=== PATIENT | female | born 1965 | race Caucasian/White ===

== ENCOUNTER 2019-06-30 09:03 | Outpatient (CLI) | payer OTHER, SELFPAY ==
[2019-06-30 09:36] LABS: Hematocrit 38.3 % (37.0-47.0); Hemoglobin 12.5 g/dL (12.0-15.0); Mean Corpuscular HGB Conc 32.6 g/dl (32-36); Mean Corpuscular Hemoglobin 28.7 pg (26-34); Mean Platelet Volume 10.8 fl (7.4-10.4); Platelet Count Result 405 k/mm3 (150-375); Red Blood Count 4.35 M/mm3 (4.2-5.4); Red Cell Distribution Width 13.2 % (11.5-14.5); White Blood Count 7.4 K/mm3 (4.5-10.0)
[2019-06-30 09:51] LABS: Alanine Aminotransferase 43 U/L (4-35); Albumin Level 4.7 g/dL (3.5-5.1); Alkaline Phosphatase 61 U/L (38-126); Aspartate Amino Transferase 38 U/L (14-36); Bilirubin,Total 0.3 mg/dL (0.2-1.3); Blood Urea Nitrogen 17 mg/dL (7-17); Calcium 9.9 mg/dL (8.4-10.2); Carbon Dioxide 27 mmol/L (22-30); Chloride 105 mmol/L (98-107); Cholesterol 165 mg/dL (0-200); Estimated Glomerular Filt Rate > 60; Glucose 99 mg/dL (65-105); HDL Direct 61 mg/dL; Potassium 4.3 mmol/L (3.4-5.0); Sodium 138 mmol/L (137-145); Triglycerides 148 mg/dL (<150)
[2019-06-30 10:02] LABS: Parathyroid Intact 9.2 pg/mL (7.5-53.5)
[2019-06-30 10:08] LABS: LDL Cholesterol Direct 71 mg/dL
[2019-06-30 10:21] LABS: Thyroid Stimulating Hormone 0.351 uIU/mL (0.465-4.680)
[2019-06-30 10:32] LABS: Vitamin D 25 Hydroxy 35.4 ng/mL
== END 2019-06-30 09:04 | disposition home or self-care (01) ==
LOC: ANHLAB 09:05
PROVIDERS: PCP Internal Medicine; Visit Provider Internal Medicine
DX: Z00.00 Encounter for general adult medical examination without abnormal findings (principal); E55.9 Vitamin D deficiency, unspecified; E78.00 Pure hypercholesterolemia, unspecified
CPT/HCPCS: 36415; 80053; 80061; 82306; 83970; 84443; 85027

== ENCOUNTER 2019-11-26 13:30 | Outpatient (CLI) | payer OTHER, SELFPAY ==
--- NOTE | ~2019-11-26 | XR_ITS ---
EXAMINATION: XR knee RT min 4V DATE: 11/26/2019 14:24 INDICATION: Right knee pain TECHNIQUE: Five views of the right knee were obtained. COMPARISON: None. FINDINGS: Alignment is normal. No fracture or osteochondral lesion. There is mild tricompartmental os teoarthritis characterized by tiny marginal osteophytes. No joint effusion/synovitis. The anterior m arker on the lateral view of the knee projects over the anterior tibial tuberosity. IMPRESSION: 1. No acute osseous abnormality. Reviewed, dictated and finalized at location A.
== END 2019-11-26 13:31 | disposition home or self-care (01) ==
PROVIDERS: PCP Internal Medicine; Visit Provider Orthopaedic Surgery
DX: M25.561 Pain in right knee (principal)
CPT/HCPCS: 73564

== ENCOUNTER 2019-12-22 07:12 | Outpatient (CLI) | payer OTHER, SELFPAY ==
[2019-12-22 07:44] LABS: Basophils Absolute Auto 0.1 K/mm3 (0.0-0.1); Basophils Percent Auto 0.9 % (0.2-1.2); Eosinophils Absolute Auto 0.3 K/mm3 (0-0.3); Eosinophils Percent Auto 4.2 % (0-4.4); Hematocrit 37.3 % (37.0-47.0); Hemoglobin 12.3 g/dL (12.0-15.0); Immature Granulocyte Absolute 0.03 K/mm3 (0.00-0.031); Immature Granulocyte Percent A 0.4 % (0-0.5); Lymphocytes Absolute Auto 2.82 K/mm3 (0.9-3.2); Lymphocytes Percent Auto 35.8 % (18.3-44.2); Mean Corpuscular Hemoglobin 29.3 pg (26-34); Mean Corpuscular Volume 88.8 fl (80-100); Mean Platelet Volume 10.7 fl (7.4-10.4); Monocytes Absolute Auto 0.6 K/mm3 (0.1-0.6); Neutrophils Percent Auto 50.7 % (45.5-73.1); Platelet Count Result 365 k/mm3 (150-375); Red Cell Distribution Width 13.2 % (11.5-14.5); White Blood Count 7.9 K/mm3 (4.5-10.0)
[2019-12-22 07:54] LABS: Alanine Aminotransferase 50 U/L (4-35); Albumin Level 4.4 g/dL (3.5-5.1); Alkaline Phosphatase 56 U/L (38-126); Anion Gap 10 mmol/L (8-16); Aspartate Amino Transferase 40 U/L (14-36); Bilirubin,Total 0.4 mg/dL (0.2-1.3); Blood Urea Nitrogen 20 mg/dL (7-17); Calcium 9.8 mg/dL (8.4-10.2); Carbon Dioxide 24 mmol/L (22-30); Chloride 106 mmol/L (98-107); Cholesterol 174 mg/dL (0-200); Estimated Glomerular Filt Rate > 60; Glucose 98 mg/dL (65-105); HDL Direct 62 mg/dL; Potassium 4.4 mmol/L (3.4-5.0); Sodium 140 mmol/L (137-145); Triglycerides 191 mg/dL (<150)
[2019-12-22 08:05] LABS: LDL Cholesterol Direct 80 mg/dL
[2019-12-22 09:01] LABS: Folic Acid > 20.0 ng/mL (2.76->20)
[2019-12-22 09:57] LABS: Free T4 Free Thyroxine 1.01 ng/mL (0.78-2.19); Vitamin D 25 Hydroxy 35.7 ng/mL
[2019-12-22 10:28] LABS: Hepatitis C Virus Antibody Negative (Negative)
== END 2019-12-22 07:13 | disposition home or self-care (01) ==
LOC: ANHLAB 07:14
PROVIDERS: PCP Internal Medicine; Visit Provider Internal Medicine
DX: E55.9 Vitamin D deficiency, unspecified (principal); E78.00 Pure hypercholesterolemia, unspecified; R53.83 Other fatigue; R79.89 Other specified abnormal findings of blood chemistry
CPT/HCPCS: 36415; 80053; 80061; 82306; 82607; 82746; 84439; 84443; 85025; 86803

== ENCOUNTER 2020-07-26 07:35 | Outpatient (CLI) | payer OTHER, SELFPAY ==
[2020-07-26 08:24] LABS: Basophils Absolute Auto 0.1 K/mm3 (0.0-0.1); Eosinophils Absolute Auto 0.9 K/mm3 (0-0.3); Eosinophils Percent Auto 12.4 % (0-4.4); Hematocrit 39.1 % (37.0-47.0); Hemoglobin 12.9 g/dL (12.0-15.0); Immature Granulocyte Absolute 0.02 K/mm3 (0.00-0.031); Immature Granulocyte Percent A 0.3 % (0-0.5); Lymphocytes Percent Auto 38.6 % (18.3-44.2); Mean Corpuscular Hemoglobin 29.4 pg (26-34); Mean Corpuscular Volume 89.1 fl (80-100); Mean Platelet Volume 11.3 fl (7.4-10.4); Monocytes Absolute Auto 0.6 K/mm3 (0.1-0.6); Monocytes Percent Auto 8.1 % (2.6-8.5); Neutrophils Absolute Auto 2.9 K/mm3 (1.3-6.7); Neutrophils Percent Auto 39.6 % (45.5-73.1); Platelet Count Result 370 k/mm3 (150-375); Red Blood Count 4.39 M/mm3 (4.2-5.4); Red Cell Distribution Width 13.2 % (11.5-14.5); White Blood Count 7.3 K/mm3 (4.5-10.0)
[2020-07-26 08:36] LABS: Alanine Aminotransferase 36 U/L (4-35); Albumin Level 4.7 g/dL (3.5-5.1); Alkaline Phosphatase 45 U/L (38-126); Anion Gap 13 mmol/L (8-16); Aspartate Amino Transferase 37 U/L (14-36); Bilirubin,Total 0.3 mg/dL (0.2-1.3); Blood Urea Nitrogen 18 mg/dL (7-17); Calcium 10.2 mg/dL (8.4-10.2); Carbon Dioxide 21 mmol/L (22-30); Chloride 109 mmol/L (98-107); Cholesterol 165 mg/dL (0-200); Estimated Glomerular Filt Rate > 60; Glucose 99 mg/dL (65-105); HDL Direct 73 mg/dL; Potassium 4.2 mmol/L (3.4-5.0); Sodium 143 mmol/L (137-145); Triglycerides 124 mg/dL (<150)
[2020-07-26 08:47] LABS: LDL Cholesterol Direct 54 mg/dL
[2020-07-26 09:31] LABS: Vitamin D 25 Hydroxy 48.6 ng/mL
[2020-07-26 10:12] LABS: Folic Acid > 20.0 ng/mL (2.76->20)
== END 2020-07-26 07:36 | disposition home or self-care (01) ==
PROVIDERS: PCP Internal Medicine; Visit Provider Internal Medicine
DX: E78.00 Pure hypercholesterolemia, unspecified (principal); R53.83 Other fatigue; E55.9 Vitamin D deficiency, unspecified
CPT/HCPCS: 36415; 80053; 80061; 82306; 82607; 82746; 84443; 85025

== ENCOUNTER 2020-09-08 01:44 | Day surgery (SDC) | payer OTHER, SELFPAY ==
[2020-08-26 10:52] VITALS: BMI 35.5
[2020-09-08 08:19] VITALS: BP 118/79; PULSE 85; RESP 18; TEMP 36.7; O2SAT 99
[2020-09-08] MEDS: LACTATED RINGERS 1,000 ML 150 ML IV CONT (08:32)
--- NOTE | 2020-09-08 08:35 | PM.HPGS ---
History of Present Illness History of Present Illness Consent: Risks, benefits, and alternatives have been discussed and questions answered. Patient agrees to proceed with procedure. Chief complaint: neoplasm screening, hx of colon polyps Narrative: Naa Montes is a 54 year old female here for colon cancer screening. She has a history of polyps. Review of Systems Review of Systems: All systems reviewed & are unremarkable except as noted in HPI and below PMFSH Past Medical History Medical History Abnormal TSH Asthma Chronic GERD Elevated LFTs Essential (primary) hypertension Hypercholesterolemia Vitamin D deficiency, unspecified Surgical History Surgical History History of nasal surgery (~2000) Family History Family History Father Patient's father is Social History Social History Smoking packs per day: 1 Smoking cigarettes per day: 20.0 Years smoked: 10 Smoking pack-years: 10.00 Smoking status: Former smoker Tobacco type: cigarettes Second hand tobacco smoke exposure: No Smoking end date: 02/21/91 Alcohol intake: current Alcohol use details: Very rarely Substance use: never Living arrangements: with family Spiritual care concerns: No Meds Home Medications and Allergies Home Medications Medication Instructions Recorded Confirmed Type fluticasone propionate 50 1 spray NASAL DAILY 12/29/18 08/26/20 History mcg/actuation nasal spray,suspension fenofibrate nanocrystallized 145 145 mg PO DAILY #90 tablet 04/29/20 08/26/20 Rx mg tablet simvastatin 40 mg tablet 40 mg PO DAILY #90 tablet 04/29/20 08/26/20 Rx fluticasone 100 mcg-salmeterol 50 1 ea INHALATION BID #180 each 08/05/20 08/26/20 Rx mcg/dose blistr powdr for inhalation pantoprazole 40 mg tablet,delayed 40 mg PO BID #180 tablet 08/05/20 08/26/20 Rx release losartan 50 mg tablet 50 mg PO DAILY #90 tablet 08/12/20 08/26/20 Rx albuterol sulfate [ProAir HFA] 1 inhalation INHALATION Q4H PRN 08/26/20 08/26/20 History calcium citrate-vitamin D3 1 tablet PO DAILY 08/26/20 08/26/20 History [Calcium Citrate + D] multivit with min-folic acid 1 tablet PO DAILY 08/26/20 08/26/20 History [Adult One Daily Multivitamin] Allergies Allergy/AdvReac Type Severity Reaction Status Date / Time No Known Allergies Allergy Verified 09/08/20 08:18 Vital Signs Vital Signs - 24 hr 09/08/20 08:19 Temperature 36.7 C Pulse Rate 85 Respiratory Rate 18 Blood Pressure 118/79 Pulse Oximetry 99 Exam Resp: Auscultation: clear to auscultation bilaterally Cardio: Rate: regular rate Rhythm: regular rhythm GI: GI Palp: Yes Soft to palpation and No Tenderness to palpation present (GI) Assessment and Plan Assessment and plan (1) Hx of colonic polyp: Code(s): Z86.010 - Personal history of colonic polyps Status: Acute Assessment and Plan: Colonoscopy with possible biopsy or polypectomy or cautery or injection of substances.
--- NOTE | 2020-09-08 09:05 | WPDANESEPPF ---
Anes - Initial Pre Proc Eval Procedure: Operation Date: 09/08/20 09:00 Proposed Procedures p Screening Colonoscopy - Manuel Steen MD Date/Time: 09/08/20 09:05 Surgeon: Manuel Steen MD Pre Op Diagnosis: neoplasm screening, hx of colon polyps Patient Data Age: 54 Gender: F Height: 1.6 m Weight: 91.7 kg Last Vital Signs Temp 98.1 F 09/08/20 08:19 Pulse 85 09/08/20 08:19 Resp 18 09/08/20 08:19 BP 118/79 09/08/20 08:19 Pulse Ox 99 09/08/20 08:19 Allergies Allergy/AdvReac Type Severity Reaction Status Date / Time No Known Allergies Allergy Verified 09/08/20 08:18 Home Medications Medication Instructions Recorded Confirmed Type fluticasone propionate 50 1 spray NASAL DAILY 12/29/18 08/26/20 History mcg/actuation nasal spray,suspension fenofibrate nanocrystallized 145 145 mg PO DAILY #90 tablet 04/29/20 08/26/20 Rx mg tablet simvastatin 40 mg tablet 40 mg PO DAILY #90 tablet 04/29/20 08/26/20 Rx fluticasone 100 mcg-salmeterol 50 1 ea INHALATION BID #180 each 08/05/20 08/26/20 Rx mcg/dose blistr powdr for inhalation pantoprazole 40 mg tablet,delayed 40 mg PO BID #180 tablet 08/05/20 08/26/20 Rx release losartan 50 mg tablet 50 mg PO DAILY #90 tablet 08/12/20 08/26/20 Rx albuterol sulfate [ProAir HFA] 1 inhalation INHALATION Q4H PRN 08/26/20 08/26/20 History calcium citrate-vitamin D3 1 tablet PO DAILY 08/26/20 08/26/20 History [Calcium Citrate + D] multivit with min-folic acid 1 tablet PO DAILY 08/26/20 08/26/20 History [Adult One Daily Multivitamin] Patient hx anesthesia problems: none Family hx anesthesia problems: none PMFSH Past Medical History Medical History Abnormal TSH Asthma Chronic GERD Elevated LFTs Essential (primary) hypertension Hypercholesterolemia Vitamin D deficiency, unspecified Surgical History Surgical History History of nasal surgery (~2000) Family History Family History Father Patient's father is Social History Social History Smoking packs per day: 1 Smoking cigarettes per day: 20.0 Years smoked: 10 Smoking pack-years: 10.00 Smoking status: Former smoker Tobacco type: cigarettes Second hand tobacco smoke exposure: No Smoking end date: 02/21/91 Alcohol intake: current Alcohol use details: Very rarely Substance use: never Living arrangements: with family Spiritual care concerns: No Anes - Eval Final PreProcedure Day of Procedure 09/08/20 09:05 Patient weight: obese Heart: regular rate and rhythm Lungs: clear to auscultation Airway: Mallampati scale class II Neurological: alert and oriented Last oral intake: >/= 8 hours ASA classification: III Emergent: no Anesthetic plan: proceed Anesthesia type and monitoring: general GIVS and standard monitoring Informed Consent: The patient's anesthetic plan and its attendant risks and benefits were discussed with the patient/family/POA. Questions were solicited and answers provided to the satisfaction of the patient/family/POA.
[2020-09-08 09:37] VITALS: BP 88/44; PULSE 76; RESP 21; O2SAT 99
[2020-09-08 09:47] VITALS: BP 128/85; PULSE 76; RESP 19; O2SAT 99
[2020-09-08 09:57] VITALS: BP 120/84; PULSE 78; RESP 18; O2SAT 100
== END 2020-09-08 10:05 | disposition home or self-care (01) ==
PROVIDERS: PCP Internal Medicine; Visit Provider Internal Medicine Gastroenterology
PROC: 0DJD8ZZ Inspection of Lower Intestinal Tract, Via Natural or Artificial Opening Endoscopic (ICD-10-PCS; CPT 45378; principal; 2020-09-08 09:00)
DX: Z12.11 Encounter for screening for malignant neoplasm of colon (principal); Z86.010 Personal history of colon polyps; K57.30 Diverticulosis of large intestine without perforation or abscess without bleeding; K21.9 Gastro-esophageal reflux disease without esophagitis; I10 Essential (primary) hypertension; J45.909 Unspecified asthma, uncomplicated; E78.00 Pure hypercholesterolemia, unspecified; E55.9 Vitamin D deficiency, unspecified; Z87.891 Personal history of nicotine dependence
CPT/HCPCS: 45378; J2704; J7120

== ENCOUNTER 2020-09-29 17:15 | Outpatient (CLI) | payer OTHER, SELFPAY ==
[2020-09-29 17:34] LABS: Add Urine Microscopic? YES; Appearance Urine Clear (Clear); Bilirubin Urine Negative (Negative); Blood Urine Negative (Negative); Color Urine Yellow (Yellow); Glucose Urine UA Negative (Negative); Ketones Urine Negative (Negative); Leukocyte Esterase Ur Negative LEU/UL (Negative); Nitrate Urine Negative (Negative); Protein Urine Negative (Negative); RBC Urine 0-2 /hpf (0-2); Specific Grav Ur 1.019 (1.001-1.035); Urobilinogen Urine Negative mg/dL (<2.0); WBC Urine 0-3 /hpf
== END 2020-09-29 17:16 | disposition home or self-care (01) ==
LOC: ANHLAB 17:17
PROVIDERS: PCP Internal Medicine; Visit Provider Internal Medicine
DX: R30.0 Dysuria (principal)
CPT/HCPCS: 81001

== ENCOUNTER 2021-04-23 09:36 | Outpatient (CLI) | payer OTHER, SELFPAY ==
--- NOTE | ~2021-04-23 | XR_ITS ---
EXAMINATION: XR toe 5th RT min 2V EXAM DATE: 04/23/2021 09:50 INDICATION: M79.676 - Pain in unspecified toe(s) Stubbed To On Tv Stand TECHNIQUE: Right 5th finger frontal, lateral and oblique projections obtained and reviewed. Comparis on is made to prior examination from 06/16/2014. FINDINGS: There is acute closed posttraumatic fracture through the shaft of the right 5th proximal p halanx with a few millimeters of displacement, in near-anatomic alignment. There is overlying soft ti ssue swelling. Previously seen 5th metatarsal fracture has healed. IMPRESSION: Acute right 5th proximal phalangeal shaft fracture. Reviewed, dictated and finalized at location B. [employer]
== END 2021-04-23 09:37 | disposition home or self-care (01) ==
LOC: ANHIMG 09:41
PROVIDERS: PCP Internal Medicine; Visit Provider Physician Assistant
DX: S92.511A Displaced fracture of proximal phalanx of right lesser toe(s), initial encounter for closed fracture (principal)
CPT/HCPCS: 73660

== ENCOUNTER 2021-05-18 14:00 | Outpatient (CLI) | payer OTHER, SELFPAY ==
--- NOTE | ~2021-05-18 | XR_ITS ---
XR foot RT min 3V DATE: 05/18/2021 14:18 INDICATION: fracture TECHNIQUE: 4 views COMPARISON: 04/23/2021 5th toe FINDINGS: There is moderately prominent osteoarthritis at the first metatarsophalangeal joint. There is a fracture of the shaft of the proximal phalanx of the fifth digit, with approximately one c ortical width lateral and posterior displacement. The fracture line is less lucent since 04/23/2021. There is prominent plantar calcaneal enthesopathy. IMPRESSION: Healing fracture of proximal phalanx of fifth toe Osteoarthritis at first metatarsophalangeal joint Plantar calcaneal enthesopathy Reviewed, dictated and finalized at location A.
== END 2021-05-18 14:01 | disposition home or self-care (01) ==
PROVIDERS: PCP Internal Medicine; Visit Provider Nurse Practitioner Family
DX: S92.502A Displaced unspecified fracture of left lesser toe(s), initial encounter for closed fracture (principal); M19.071 Primary osteoarthritis, right ankle and foot; M77.31 Calcaneal spur, right foot
CPT/HCPCS: 73630

== ENCOUNTER 2021-08-20 07:04 | Outpatient (CLI) | payer OTHER, SELFPAY ==
[2021-08-20 07:33] LABS: Basophils Absolute Auto 0.1 K/mm3 (0.0-0.1); Eosinophils Absolute Auto 0.4 K/mm3 (0-0.3); Eosinophils Percent Auto 4.2 % (0-4.4); Hematocrit 39.5 % (37.0-47.0); Hemoglobin 12.7 g/dL (12.0-15.0); Immature Granulocyte Absolute 0.02 K/mm3 (0.00-0.031); Immature Granulocyte Percent A 0.2 % (0-0.5); Lymphocytes Absolute Auto 3.08 K/mm3 (0.9-3.2); Lymphocytes Percent Auto 37.4 % (18.3-44.2); Mean Corpuscular HGB Conc 32.2 g/dl (32-36); Mean Corpuscular Volume 87.2 fl (80-100); Mean Platelet Volume 10.8 fl (7.4-10.4); Monocytes Absolute Auto 0.7 K/mm3 (0.1-0.6); Neutrophils Percent Auto 48.2 % (45.5-73.1); Platelet Count Result 352 k/mm3 (150-375); Red Blood Count 4.53 M/mm3 (4.2-5.4); Red Cell Distribution Width 14.4 % (11.5-14.5); White Blood Count 8.2 K/mm3 (4.5-10.0)
[2021-08-20 07:50] LABS: Alanine Aminotransferase 38 U/L (6-35); Albumin Level 4.5 g/dL (3.5-5.1); Alkaline Phosphatase 56 U/L (38-126); Anion Gap 7 mmol/L (8-16); Aspartate Amino Transferase 31 U/L (14-36); Bilirubin,Total 0.2 mg/dL (0.2-1.3); Blood Urea Nitrogen 18 mg/dL (7-17); Calcium 9.6 mg/dL (8.4-10.2); Carbon Dioxide 25 mmol/L (22-30); Chloride 108 mmol/L (98-107); Cholesterol 172 mg/dL (0-200); Estimated Glomerular Filt Rate > 60; Glucose 100 mg/dL (65-110); HDL Direct 66 mg/dL; Potassium 5.1 mmol/L (3.4-5.0); Sodium 140 mmol/L (137-145); Triglycerides 240 mg/dL (<150)
[2021-08-20 08:02] LABS: LDL Cholesterol Direct 62 mg/dL
[2021-08-20 08:56] LABS: Folic Acid 15.2 ng/mL (2.76->20)
== END 2021-08-20 07:05 | disposition home or self-care (01) ==
LOC: ANHLAB 07:09
PROVIDERS: PCP Internal Medicine; Visit Provider Internal Medicine
DX: E55.9 Vitamin D deficiency, unspecified (principal); E78.00 Pure hypercholesterolemia, unspecified; R53.83 Other fatigue
CPT/HCPCS: 36415; 80053; 80061; 82306; 82607; 82746; 84443; 85025

== ENCOUNTER 2022-02-18 16:09 | Emergency (ER) | payer OTHER, SELFPAY ==
[2022-02-18 16:45] VITALS: BP 139/80; PULSE 100; RESP 16; TEMP 36.1; O2SAT 99
--- NOTE | 2022-02-19 20:17 | ED.GENADULT ---
HPI - General Adult General Chief complaint: Upper Respiratory Infection Stated complaint: cough History of Present Illness HPI narrative: 56 y/o female. PMHx Asthma, GERD, HTN, Dyslipidemia. Presents to [facility] clinic today with acute complaints of nasal congestion and productive cough ongoing for > 2 weeks. No fever. No chest pain, palpitations, wheezing. Intermittent dyspnea, no hemoptysis. Subtherapeutic reliefs w/home & OTC remedies. Related Data Allergies Allergy/AdvReac Type Severity Reaction Status Date / Time No Known Allergies Allergy Verified 02/18/22 17:22 Review of Systems Review of Systems: CONSTITUTIONAL: Denies fever, chills, sweats. EYES: Denies visual changes, redness, discharge. ENT: Positive rhinorrhea, congestion. No sore throat, otalgia. CARDIOVASCULAR: Denies chest pain, palpitations, edema. RESPIRATORY: Denies dyspnea, wheezing. Positive cough GASTROINTESTINAL: Denies abdominal pain, nausea, vomiting, diarrhea. All other systems have been reviewed: Unless noted remaining ROS Negative. [facility] Past Medical History Medical History Abnormal TSH Asthma Chronic GERD Elevated LFTs Essential (primary) hypertension Fracture of fifth toe, left, closed Fracture of fifth toe, right, closed Hypercholesterolemia Vitamin D deficiency, unspecified Surgical History Surgical History History of nasal surgery (~2000) History of rhinoplasty (~2001) Dr. Martinez Family History Family History Father Patient's father is Other Family history of arthritis Family history of high cholesterol Hypertension Social History Social History Smoking status: Former smoker Tobacco type: cigarettes Second hand tobacco smoke exposure: No Smoking end date: 02/22/92 Alcohol intake: current Drinks per week: 5 Substance use: never Additional occupation/education comments: XR Tech at Gender identity (if verbalized by the patient): Female Spiritual care concerns: No Exam Narrative: GENERAL: This is a well-nourished, well-developed adult, in no apparent distress. HEAD: normocephalic, atraumatic. EYES: PERRL. Sclera clear/white. EARS: External ears normal, auditory canals clear and without drainage, TMs normal. NOSE: External nose normal. Positive Rhinorrhea, no obstruction, nares patent. THROAT: Mucous membranes moist, posterior pharynx erythematous. No exudates. NECK: Neck supple, non-tender without lymphadenopathy, masses or thyromegaly. CARDIOVASCULAR: Regular rate and rhythm without murmurs, gallops, or rubs. RESPIRATORY: Upper airway rhonchi, cleared w/cough. No wheeze or rales. GASTROINTESTINAL: Abdomen soft, non-tender, nondistended. Bowel sounds are active. No guarding. SKIN: warm, intact with no suspicious lesions or rash, good texture and turgor. NEURO: Alert, active, and age appropriate. No focal neurologic deficits. Course Course Level of Care: Express Care Visit Vital Signs Vital signs: Vital Signs Temperature 36.1 C L 02/18/22 16:45 Pulse Rate 100 02/18/22 16:45 Respiratory Rate 16 02/18/22 16:45 Blood Pressure 139/80 02/18/22 16:45 Pulse Oximetry 99 02/18/22 16:45 Temperature 36.1 C L 02/18/22 16:45 Pulse Rate 100 02/18/22 16:45 Respiratory Rate 16 02/18/22 16:45 Blood Pressure 139/80 02/18/22 16:45 Pulse Oximetry 99 02/18/22 16:45 Medical Decision Making Differential Diagnosis Differential Diagnosis: Differential Diagnosis: Consideration of the following conditions may be warranted for the presenting problem, they are not final diagnoses: upper respiratory infection, otitis media, sinusitis, RSV viral infection, PNA, bronchitis, pharyngitis, Streptococcal sore thr
== END 2022-02-18 17:39 | disposition home or self-care (01) ==
PROVIDERS: Emergency Provider Nurse Practitioner Adult Health; PCP Internal Medicine
DX: J40 Bronchitis, not specified as acute or chronic (principal); Z87.891 Personal history of nicotine dependence; J45.909 Unspecified asthma, uncomplicated; K21.9 Gastro-esophageal reflux disease without esophagitis; I10 Essential (primary) hypertension; E78.00 Pure hypercholesterolemia, unspecified
CPT/HCPCS: 99213; G0463

== ENCOUNTER 2022-03-27 15:09 | Emergency (ER) | payer OTHER, SELFPAY ==
[2022-03-27 15:39] VITALS: BP 140/79; PULSE 86; RESP 18; TEMP 36.3; O2SAT 100
--- NOTE | 2022-03-27 15:57 | ED.GENADULT ---
HPI - General Adult General Chief complaint: Eye Problems Stated complaint: rt eye swelling and discharge Time Seen by Provider: 03/27/22 15:57 Source: patient Mode of arrival: ambulatory Limitations: no limitations History of Present Illness HPI narrative: 56-year-old female patient presents to the [facility] with complaints of redness, pain and discharge from the right eye that started last night. Patient states that she did baby-sit her grandchildren a couple of days ago and they also were treated for pinkeye a couple of days ago. Related Data Allergies Allergy/AdvReac Type Severity Reaction Status Date / Time No Known Allergies Allergy Verified 02/18/22 17:22 Review of Systems Review of Systems: CONSTITUTIONAL: Denies fever, chills, or sweats. EYES: Denies visual changes, Positive right eye redness, and discharge. ENT: Denies rhinorrhea, congestion, sore throat, or otalgia. CARDIOVASCULAR: Denies chest pain, palpitations, or edema. RESPIRATORY: Denies cough or dyspnea. GASTROINTESTINAL: Denies abdominal pain, nausea, vomiting, or diarrhea. GENITOURINARY: Denies dysuria or hematuria. SKIN: Denies rash or itching. MUSCULOSKELETAL: Denies back pain, joint pain, or myalgia. NEUROLOGIC: Denies headache, numbness, or weakness. PSYCHIATRIC: Denies anxiety or depression. [facility] Past Medical History Medical History Abnormal TSH Asthma Chronic GERD Elevated LFTs Essential (primary) hypertension Fracture of fifth toe, left, closed Fracture of fifth toe, right, closed Hypercholesterolemia Vitamin D deficiency, unspecified Surgical History Surgical History History of nasal surgery (~2000) History of rhinoplasty (~2001) Dr. 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 There is no relevant family history pertinent to the presenting complaint. Exam Narrative: GENERAL: Well-appearing, well-nourished, and in no acute distress. HEAD: Normocephalic, atraumatic. EYES: PERRLA and EOMI. patient has erythema to sclera of the right eye with injection. There is also swelling noted to the right upper lid. No obvious foreign bodies noted. There is a green discharge coming from the right eye. ENT: Nares clear, no rhinorrhea or epistaxis. Mucous membranes moist. NECK: Supple. No lymphadenopathy CHEST: Clear to auscultation. No respiratory distress. HEART: Regular rate and rhythm. No murmur heard. Normal peripheral pulses. ABDOMEN: Soft, nontender, nondistended, normal active bowel sounds. EXTREMITIES: Normal range of motion. No edema. SKIN: Warm, dry, no rash. NEURO: No focal deficits. Alert and oriented x3. Course Course Level of Care: Express Care Visit Vital Signs Vital signs: Vital Signs Temperature 36.3 C L 03/27/22 15:39 Pulse Rate 86 03/27/22 15:39 Respiratory Rate 18 03/27/22 15:39 Blood Pressure 140/79 03/27/22 15:39 Pulse Oximetry 100 03/27/22 15:39 Oxygen Delivery Room Air 03/27/22 15:39 Temperature 36.3 C L 03/27/22 15:39 Pulse Rate 86 03/27/22 15:39 Respiratory Rate 18
== END 2022-03-27 16:14 | disposition home or self-care (01) ==
PROVIDERS: Emergency Provider Nurse Practitioner Family; PCP Internal Medicine
DX: H10.31 Unspecified acute conjunctivitis, right eye (principal); I10 Essential (primary) hypertension; J45.909 Unspecified asthma, uncomplicated; Z87.891 Personal history of nicotine dependence
CPT/HCPCS: 99213; G0463

== ENCOUNTER 2022-06-25 06:42 | Outpatient (CLI) | payer OTHER, SELFPAY ==
[2022-06-25 07:15] LABS: Basophils Absolute Auto 0.1 K/mm3 (0.0-0.1); Basophils Percent Auto 1.2 % (0.2-1.2); Eosinophils Absolute Auto 0.3 K/mm3 (0-0.3); Eosinophils Percent Auto 4.3 % (0-4.4); Hematocrit 42.7 % (37.0-47.0); Hemoglobin 13.7 g/dL (12.0-15.0); Immature Granulocyte Absolute 0.02 K/mm3 (0.00-0.031); Immature Granulocyte Percent A 0.3 % (0-0.5); Lymphocytes Absolute Auto 2.69 K/mm3 (0.9-3.2); Lymphocytes Percent Auto 39.9 % (18.3-44.2); Mean Corpuscular HGB Conc 32.1 g/dl (32-36); Mean Corpuscular Hemoglobin 28.7 pg (26-34); Mean Corpuscular Volume 89.3 fl (80-100); Mean Platelet Volume 11.3 fl (7.4-10.4); Monocytes Absolute Auto 0.5 K/mm3 (0.1-0.6); Monocytes Percent Auto 7.7 % (2.6-8.5); Neutrophils Absolute Auto 3.2 K/mm3 (1.3-6.7); Neutrophils Percent Auto 46.6 % (45.5-73.1); Platelet Count Result 331 k/mm3 (150-375); Red Blood Count 4.78 M/mm3 (4.2-5.4); Red Cell Distribution Width 13.4 % (11.5-14.5); White Blood Count 6.8 K/mm3 (4.5-10.0)
[2022-06-25 07:29] LABS: Alanine Aminotransferase 34 U/L (6-35); Albumin Level 4.8 g/dL (3.5-5.1); Alkaline Phosphatase 75 U/L (38-126); Anion Gap 7 mmol/L (8-16); Aspartate Amino Transferase 28 U/L (14-36); Bilirubin,Total 0.6 mg/dL (0.2-1.3); Blood Urea Nitrogen 19 mg/dL (7-17); Calcium 9.9 mg/dL (8.4-10.2); Carbon Dioxide 30 mmol/L (22-30); Chloride 104 mmol/L (98-107); Cholesterol 197 mg/dL (0-200); Estimated Glomerular Filt Rate > 60; Glucose 93 mg/dL (65-110); HDL Direct 53 mg/dL; Potassium 4.5 mmol/L (3.4-5.0); Sodium 141 mmol/L (137-145); Triglycerides 166 mg/dL (<150)
[2022-06-25 07:40] LABS: LDL Cholesterol Direct 93 mg/dL
[2022-06-25 08:16] LABS: Vitamin D 25 Hydroxy 49.4 ng/mL
[2022-06-25 08:34] LABS: HAV RESULT Negative (Negative); Hepatitis B Core IgM Result Negative (Negative)
[2022-06-25 08:36] LABS: Folic Acid > 20.0 ng/mL (2.76->20); Hepatitis B Surface Antigen Negative (Negative)
[2022-06-25 08:45] LABS: Hepatitis C Virus Antibody Negative (Negative)
== END 2022-06-25 06:43 | disposition home or self-care (01) ==
LOC: ANHLAB 06:44
PROVIDERS: PCP Internal Medicine; Visit Provider Internal Medicine
DX: Z00.00 Encounter for general adult medical examination without abnormal findings (principal); E55.9 Vitamin D deficiency, unspecified; E78.00 Pure hypercholesterolemia, unspecified; I10 Essential (primary) hypertension; R79.89 Other specified abnormal findings of blood chemistry
CPT/HCPCS: 36415; 80053; 80061; 80074; 82306; 82607; 82746; 84443; 85025

== ENCOUNTER 2023-07-08 07:12 | Outpatient (CLI) | payer OTHER, SELFPAY ==
[2023-07-08 07:57] LABS: Basophils Absolute Auto 0.1 K/mm3 (0.0-0.1); Basophils Percent Auto 1.4 % (0.2-1.2); Eosinophils Absolute Auto 0.3 K/mm3 (0-0.3); Eosinophils Percent Auto 5.7 % (0-4.4); Hematocrit 41.9 % (37.0-47.0); Hemoglobin 13.3 g/dL (12.0-15.0); Immature Granulocyte Absolute 0.02 K/mm3 (0.00-0.031); Immature Granulocyte Percent A 0.4 % (0-0.5); Lymphocytes Absolute Auto 2.03 K/mm3 (0.9-3.2); Lymphocytes Percent Auto 39.9 % (18.3-44.2); Mean Corpuscular HGB Conc 31.7 g/dl (32-36); Mean Corpuscular Hemoglobin 28.5 pg (26-34); Mean Corpuscular Volume 89.7 fl (80-100); Mean Platelet Volume 10.2 fl (7.4-10.4); Monocytes Absolute Auto 0.5 K/mm3 (0.1-0.6); Neutrophils Absolute Auto 2.2 K/mm3 (1.3-6.7); Neutrophils Percent Auto 43.6 % (45.5-73.1); Platelet Count Result 301 k/mm3 (150-375); Red Blood Count 4.67 M/mm3 (4.2-5.4); Red Cell Distribution Width 14.7 % (11.5-14.5); White Blood Count 5.1 K/mm3 (4.5-10.0)
[2023-07-08 08:15] LABS: Alanine Aminotransferase 28 U/L (6-35); Albumin Level 4.8 g/dL (3.5-5.1); Alkaline Phosphatase 76 U/L (38-126); Anion Gap 8 mmol/L (4-12); Aspartate Amino Transferase 28 U/L (14-36); Bilirubin,Total 0.7 mg/dL (0.2-1.3); Blood Urea Nitrogen 19 mg/dL (7-17); Calcium 9.5 mg/dL (8.4-10.2); Carbon Dioxide 23 mmol/L (22-30); Chloride 109 mmol/L (98-107); Cholesterol 269 mg/dL (0-200); Estimated Glomerular Filt Rate > 60; Glucose 97 mg/dL (65-110); HDL Direct 84 mg/dL; Potassium 3.8 mmol/L (3.4-5.0); Sodium 140 mmol/L (137-145); Triglycerides 190 mg/dL (<150)
[2023-07-08 08:26] LABS: LDL Cholesterol Direct 141 mg/dL
[2023-07-08 08:46] LABS: Vitamin D 25 Hydroxy 38.4 ng/mL
== END 2023-07-08 07:13 | disposition home or self-care (01) ==
LOC: ANHLAB 07:14
PROVIDERS: PCP Internal Medicine; Visit Provider Internal Medicine
DX: Z00.00 Encounter for general adult medical examination without abnormal findings (principal); I10 Essential (primary) hypertension; R79.89 Other specified abnormal findings of blood chemistry; E78.5 Hyperlipidemia, unspecified; E55.9 Vitamin D deficiency, unspecified; Z13.29 Encounter for screening for other suspected endocrine disorder
CPT/HCPCS: 36415; 80053; 80061; 82306; 84443; 85025

== ENCOUNTER 2023-10-14 18:43 | Emergency (ER) | payer OTHER, SELFPAY ==
[2023-10-14 18:46] VITALS: BP 210/93; PULSE 89; RESP 16; TEMP 36.6; O2SAT 98
--- NOTE | 2023-10-14 18:53 | ECG_ITS ---
Test Date: 2023-10-14 18:56:59 Measurements Intervals [place] Rate: 73 P: 36 ME: 154 QRS: 35 QRSD: 93 T: 40 QT: 386 QTc: 427 Interpretive Statements SINUS RHYTHM No previous ECG available for comparison Electronically Signed On 10-15-2023 10:35:00 CDT by Demetri Blue M.D.
--- NOTE | 2023-10-14 19:04 | PC.NURSE ---
Pt reports she is going to go home at this time because she is feeling better and will return if needed. No distress, skin pwd and gait is steady
== END 2023-10-14 20:24 | disposition left against medical advice (07) ==
PROVIDERS: Emergency Provider Emergency Medicine; PCP Internal Medicine
DX: R03.0 Elevated blood-pressure reading, without diagnosis of hypertension (principal)
CPT/HCPCS: 93005; 99199

== ENCOUNTER 2023-11-29 11:37 | Emergency (ER) | payer OTHER, SELFPAY ==
[2023-11-29 11:49] VITALS: BP 132/78; PULSE 75; RESP 16; TEMP 36.7; O2SAT 99
--- NOTE | 2023-11-29 12:02 | ED.WOUNDLAC ---
HPI - Wound/Laceration General Chief Complaint: Wound/Laceration Stated Complaint: Left Hand Finger Laceration Time Seen by Provider: 11/29/23 11:40 Source: patient Mode of arrival: ambulatory Limitations: no limitations History of Present Illness HPI narrative: Patient is a 4-year-old female who presents with left hand 3rd digit laceration from quarter trimmer. Happened roughly 11 30. Try to use compression to stop bleeding but is still actively bleeding. Patient was wearing gloves but went to move a weed out of the way and caught her finger. Unsure how deep of laceration it is. States she still has feeling to tip of finger. No nail involvement. Related Data Allergies Allergy/AdvReac Type Severity Reaction Status Date / Time No Known Allergies Allergy Verified 07/11/23 15:28 Review of Systems Review of Systems: All systems reviewed & are unremarkable except as noted in HPI and below Constitutional: Constitutional: Denies body ache(s), Denies chills, Denies fatigue, Denies fever(s), Denies headache(s), Denies malaise and Denies weakness Eyes: Eyes: Denies blurry vision, Denies irritation and Denies loss of vision ENT: Denies otalgia, Denies headache(s), Denies nasal discharge, Denies sinus pain and Denies sore throat Cardiovascular: Cardiovascular: Denies chest pain, Denies irregular heart rhythm and Denies dyspnea Respiratory: Respiratory: Denies dyspnea Gastrointestinal: Gastrointestinal: Denies abdominal pain, Denies melena, Denies hematochezia, Denies diarrhea, Denies nausea and Denies vomiting Musculoskeletal: Musculoskeletal: Denies back pain, Denies myalgias and Denies arthralgias Integumentary/Breasts: Skin/Breast: Denies pruritus, Denies rash and Reports wounds Neurologic: Denies headache(s), Denies loss of vision and Denies weakness Psychiatric: Psychiatric: Reports no additional psychiatric complaints Endocrine: Endocrine: Denies fatigue PMFSH Past Medical History Medical History Abnormal TSH Asthma Chronic GERD Elevated LFTs Essential (primary) hypertension Fracture of fifth toe, left, closed Fracture of fifth toe, right, closed Hypercholesterolemia Screening mammogram for breast cancer Vitamin D deficiency, unspecified Surgical History Surgical History History of nasal surgery (~2000) History of rhinoplasty (~2001) Dr. Martinez Family History Family History Father Patient's father is Acute myocardial infarction Other Family history of arthritis Family history of high cholesterol Hypertension Social History Social History Smoking status: Former smoker Tobacco type: cigarettes Second hand tobacco smoke exposure: No Smoking end date: 02/22/92 Alcohol intake: current Drinks per week: 5 Substance use: never Substance use type: does not use Do You Feel Safe in your Home?: Yes Lack of Transportation: No Lack of Food: Never True Current Housing: I Have Housing Concerned About Future Housing: No Difficulty Paying Gas/Electric Bills: No Difficulty Paying for Meds: No Currently Unemployed: No Education: Associate Degree Difficulty w/ Childcare or Family Care: No Living arrangements: with family Occupation/Education: occupation 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 There is no relevant family history pertinent to the presenting complaint. Exam Const: General: cooperative, healthy appearing, comfortable, no acute distress
== END 2023-11-29 12:05 | disposition short-term general hospital (02) ==
LOC: EXPCOLL 11:41
PROVIDERS: Emergency Provider Nurse Practitioner Family; PCP Internal Medicine
DX: S61.213A Laceration without foreign body of left middle finger without damage to nail, initial encounter (principal); W29.3XXA Contact with powered garden and outdoor hand tools and machinery, initial encounter; Z87.891 Personal history of nicotine dependence; K21.9 Gastro-esophageal reflux disease without esophagitis; I10 Essential (primary) hypertension; E78.00 Pure hypercholesterolemia, unspecified; J45.909 Unspecified asthma, uncomplicated
CPT/HCPCS: 99212; G0463

== ENCOUNTER 2023-11-29 12:21 | Emergency (ER) | payer OTHER, SELFPAY ==
--- NOTE | ~2023-11-29 | XR_ITS ---
EXAMINATION: XR finger 3rd LT min 2V DATE: 11/29/2023 12:40 INDICATION: Left hand third digit laceration. TECHNIQUE: 3 views of left hand third digit were obtained. COMPARISON: None. FINDINGS: Alignment is normal. No fracture. There is mild osteoarthritis of third metacarpophalangeal joints and distal interphalangeal joint. Bandage material overlies the distal finger. IMPRESSION: 1. No fracture or radiopaque foreign body. Reviewed, dictated and finalized at location A.
[2023-11-29 12:24] VITALS: BP 182/111; PULSE 73; RESP 16; TEMP 36.6; O2SAT 99
--- NOTE | 2023-11-29 12:32 | ED.SKABFB ---
HPI - Skin/Abscess/Foreign Bdy General Chief complaint: Skin/Abscess/Foreign Body Stated complaint: laceration Time Seen by Provider: 11/29/23 12:30 Source: patient Mode of arrival: ambulatory Limitations: no limitations History of Present Illness HPI narrative: Patient is a 58 y/o female who presents to the ED with c/o laceration to her L 3rd digit. Reports she was using a cutter and edge trimmer just prior to arrival when she sustained a laceration to her L 3rd digit finger pad. Was seen in urgent care and sent here for further evaluation. Reports slight tingling in her finger. Denies numbness. Denies any other injuries. Tetanus UTD. Related Data Allergies Allergy/AdvReac Type Severity Reaction Status Date / Time No Known Allergies Allergy Verified 07/11/23 15:28 Review of Systems Review of Systems: All systems reviewed & are unremarkable except as noted in HPI. All systems reviewed & are unremarkable except as noted in HPI and below PMFSH Past Medical History Medical History Abnormal TSH Asthma Chronic GERD Elevated LFTs Essential (primary) hypertension Fracture of fifth toe, left, closed Fracture of fifth toe, right, closed Hypercholesterolemia Screening mammogram for breast cancer Vitamin D deficiency, unspecified Surgical History Surgical History History of nasal surgery (~2000) History of rhinoplasty (~2001) Dr. Martinez Family History Family History Father Patient's father is Acute myocardial infarction Other Family history of arthritis Family history of high cholesterol Hypertension Social History Social History Smoking status: Former smoker Tobacco type: cigarettes Second hand tobacco smoke exposure: No Smoking end date: 02/22/92 Alcohol intake: current Drinks per week: 5 Substance use: never Substance use type: does not use Do You Feel Safe in your Home?: Yes Lack of Transportation: No Lack of Food: Never True Current Housing: I Have Housing Concerned About Future Housing: No Difficulty Paying Gas/Electric Bills: No Difficulty Paying for Meds: No Currently Unemployed: No Education: Associate Degree Difficulty w/ Childcare or Family Care: No Living arrangements: with family Occupation/Education: occupation 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 HEAD: Normocephalic, atraumatic. RESPIRATORY: Airway patent, respirations nonlabored. CARDIOVASCULAR: Regular rate and rhythm. Radial pulses strong easily palpable. MUSCULOSKELETAL: Moves all extremities. No gross deformities. SKIN: Warm, dry, normal color. Large at least 3 cm curvilinear laceration across distal finger pad on flexor surface of left 3rd digit. Mild amount of bleeding. Distal sensation is intact. NEURO: A&O X3. Speech clear. PSYCHIATRIC: Appropriate mood and affect. Normal interaction. Course Vital Signs Vital signs: Vital Signs Temperature 97.9 F 11/29/23 12:24 Pulse Rate 73 11/29/23 12:24 Respiratory Rate 16 11/29/23 12:24 Blood Pressure 182/111 H 11/29/23 12:24 Pulse Oximetry 99 11/29/23 12:24 Oxygen Delivery Room Air 11/29/23 12:24 Temperature 97.9 F 11/29/23 12:24 Pulse Rate 73 11/29/23 12:24 Respiratory Rate 16 11/29/23 12:24 Blood Pressure 182/111 H 11/29/23 12:24 Pulse Oximetry 99 11/29/23 12:24 Oxygen Delivery Room Air 11/29/23 12:24 Procedures Laceration Laceration 1: Date:
== END 2023-11-29 14:42 | disposition home or self-care (01) ==
LOC: ANHED 14:04
PROVIDERS: Emergency Provider Physician Assistant; PCP Internal Medicine
DX: S61.213A Laceration without foreign body of left middle finger without damage to nail, initial encounter (principal); J45.909 Unspecified asthma, uncomplicated; K21.9 Gastro-esophageal reflux disease without esophagitis; I10 Essential (primary) hypertension; E78.5 Hyperlipidemia, unspecified; W29.3XXA Contact with powered garden and outdoor hand tools and machinery, initial encounter
CPT/HCPCS: 12002; 73140; 99283

== ENCOUNTER 2024-02-09 07:38 | Outpatient (CLI) | payer OTHER, SELFPAY ==
[2024-02-09 08:07] LABS: Alanine Aminotransferase 32 U/L (6-35); Albumin Level 4.6 g/dL (3.5-5.1); Alkaline Phosphatase 63 U/L (38-126); Anion Gap 7 mmol/L (4-12); Aspartate Amino Transferase 33 U/L (14-36); Bilirubin,Total 0.6 mg/dL (0.2-1.3); Blood Urea Nitrogen 12 mg/dL (7-17); Calcium 9.5 mg/dL (8.4-10.2); Carbon Dioxide 26 mmol/L (22-30); Chloride 107 mmol/L (98-107); Cholesterol 176 mg/dL (0-200); Estimated Glomerular Filt Rate > 60; Glucose 84 mg/dL (65-110); HDL Direct 73 mg/dL; Sodium 140 mmol/L (137-145); Triglycerides 226 mg/dL (<150)
[2024-02-09 08:18] LABS: LDL Cholesterol Direct 61 mg/dL
[2024-02-09 09:41] LABS: Vitamin D 25 Hydroxy 36.8 ng/mL
== END 2024-02-09 07:39 | disposition home or self-care (01) ==
LOC: ANHLAB 07:40
PROVIDERS: PCP Internal Medicine; Visit Provider Internal Medicine
DX: E78.5 Hyperlipidemia, unspecified (principal); I10 Essential (primary) hypertension; E78.00 Pure hypercholesterolemia, unspecified; E55.9 Vitamin D deficiency, unspecified
CPT/HCPCS: 36415; 80053; 80061; 82306

== ENCOUNTER 2024-07-02 15:49 | Outpatient (CLI) | payer OTHER, SELFPAY ==
--- NOTE | ~2024-07-02 | XR_ITS ---
EXAM: XR wrist RT min 3V DATE: 07/02/2024 16:01 HISTORY: M25.539 - Pain in unspecified wrist . COMPARISON: 08/27/2003, images only. FINDINGS: Mild subjectively decreased mineralization mineralization. No acute fracture or dislocatio n. Scapholunate widening. Moderate degenerative changes in the intercarpal joint and multiple carpal articulations. Large ossific fragment adjacent to the distal ulna. Ossific fragment over the dorsal w rist, may represent an old triquetral fracture fragment. IMPRESSION: Moderate polyarticular osteoarthritis of the wrist. Scapholunate widening with changes SL AC wrist. Old ulnar styloid fracture fragment/loose body. Reviewed, dictated and finalized at location K. IMPRESSION: Moderate polyarticular osteoarthritis of the wrist. Scapholunate wi dening with changes SLAC wrist. Old ulnar styloid fracture fragment/loose body.
--- OUTSIDE RECORDS SUMMARY | 2024-07-02 15:52 | XMS_ITS | Referral Summary ---
Author Organization [facility] Address [address] [place] [address] Care Team Providers Care Rod Mill Tender Name Role Phone Guanaco Gillis DO Primary Care Provider [phone] Social History Tobacco Use Types Packs/Day Years Used Date Smoking Tobacco: Never Assessed Comments Unknown Sex and Gender Information Value Date Recorded Sex Assigned at Not on file Legal Sex Female 2:42 AM TAX LAWYER Gender Identity Not on file Sexual Orientation Not on file Plan of Treatment Not on file Procedures Procedure Name Priority Date/Time Associated Diagnosis Comments SCREENING MAMMOGRAM BILATERAL W MAULIK Schedule Routine, Read Routine (OP Routine) 01/17/2024 9:53 AM TAX LAWYER Screening mammogram, encounter for from Last 3 Months or Most Recently Relevant to Health Maintenance Results * Screening Mammogram Bilateral W Maulik (01/17/2024 9:53 AM TAX LAWYER) Anatomical Region Laterality Modality Breast Bilateral Mammography Narrative 01/18/2024 12:57 PM TAX LAWYER Mammogram Technique: Bilateral Digital Breast Tomosynthesis, Bilateral C-view 2D Screening mammogram. Views obtained: bilateral craniocaudal and bilateral mediolateral oblique. Computer Aided Detection was performed. Mammogram Findings: The present examination has been compared to prior imaging studies performed at [facility] on 06/17/2014, 08/07/2015, 08/11/2016, 08/23/2016, 08/19/2017, 09/07/2018, 10/12/2019, 11/10/2020 and 01/12/2023, and at [facility] on 12/22/2021. There are scattered areas of fibroglandular density. There is no suspicious abnormality in either breast. There are no significant changes from the prior study. Impression: There is no mammographic evidence of malignancy. Annual screening mammography is recommended. OVERALL FINAL ASSESSMENT: BI-RADS CATEGORY 1: Negative. Procedure Note Smita Everett MD - 01/18/2024 Mammogram Technique: Bilateral Digital Breast Tomosynthesis, Bilateral C-view 2D Screening mammogram. Views obtained: bilateral craniocaudal and bilateral mediolateral oblique. Computer Aided Detection was performed. Mammogram Findings: The present examination has been compared to prior imaging studies performed at [facility] on 06/17/2014, 08/07/2015,08/11/2016, 08/23/2016, 08/19/2017, 09/07/2018, 10/12/2019, 11/10/2020 and01/12/2023, and at [facility] on 12/22/2021. There are scattered areas of fibroglandular density. There is no suspicious abnormality in either breast. There are no significant changes from the prior study. Impression: There is no mammographic evidence of malignancy. Annual screening mammography is recommended. OVERALL FINAL ASSESSMENT: BI-RADS CATEGORY 1: Negative. us Self Screening Mammogram IMG MAMMO PROCEDURES Fi nal Result from Last 3 Months or Most Recently Relevant to Health Maintenance Insurance [facility]/PPO Address: [id number] [place] [phone] [facility]/PPO Address: [address] [place] [phone] [facility]/PPO Address: [address] [place] [phone] Care Teams Rod Mill Tender Relationship Specialty Start Date End Date Guanaco Gillis DO [address] [address] PCP - General Internal Medicine 12/14/23
--- OUTSIDE RECORDS SUMMARY | 2024-07-02 15:52 | XMS_ITS | Clinical Summary ---
Author Organization [facility] Address [address] [place] [address] Care Team Providers Care News Copy Editor Name Role Phone Guanaco Gillis DO Primary Care Provider [phone] Social History Tobacco Use Types Packs/Day Years Used Date Smoking Tobacco: Never Assessed Comments Unknown Sex and Gender Information Value Date Recorded Sex Assigned at Not on file Legal Sex Female 2:42 AM CORRECTIONS NURSE Gender Identity Not on file Sexual Orientation Not on file Plan of Treatment Health Maintenance Due Date Last Done Comments Cervical Cancer Screening 1965 Colon Cancer Screening-Colonoscopy 1965 Depression Screening 1965 Hepatitis C Screening 1965 DTaP/Tdap/Td Vaccine (1 - Tdap) 10/15/1974 Hepatitis B Screening 10/15/1981 Regular Well Visit/Exam 18-64 10/15/1981 Zoster Vaccine (2 of 2) 12/20/2020 10/25/2020 Covid-19 Vaccine ( season) 2023 02/29/2020, 02/08/2020 Influenza Vaccine (#1) 2023 Breast Cancer Screening-Mammogram 01/16/2025 01/17/2024, 01/12/2023, 12/22/2021, Additional history exists Pneumococcal vaccine <65 Aged Out 10/25/2020 No longer eligible based on patient's age to complete this topic Procedures Procedure Name Priority Date/Time Associated Diagnosis Comments SCREENING MAMMOGRAM BILATERAL W MAULIK Schedule Routine, Read Routine (OP Routine) 01/17/2024 9:53 AM CORRECTIONS NURSE Screening mammogram, encounter for from Last 3 Months or Most Recently Relevant to Health Maintenance Results * Screening Mammogram Bilateral W Maulik (01/17/2024 9:53 AM CORRECTIONS NURSE) Anatomical Region Laterality Modality Breast Bilateral Mammography Narrative 01/18/2024 12:57 PM CORRECTIONS NURSE Mammogram Technique: Bilateral Digital Breast Tomosynthesis, Bilateral C-view 2D Screening mammogram. Views obtained: bilateral craniocaudal and bilateral mediolateral oblique. Computer Aided Detection was performed. Mammogram Findings: The present examination has been compared to prior imaging studies performed at [facility] on 06/17/2014, 08/07/2015, 08/11/2016, 08/23/2016, 08/19/2017, 09/07/2018, 10/12/2019, 11/10/2020 and 01/12/2023, and at [facility] on 12/22/2021. There are scattered [...] compared to prior imaging studies performed at [facility] on 06/17/2014, 08/07/2015,08/11/2016, 08/23/2016, 08/19/2017, 09/07/2018, 10/12/2019, 11/10/2020 and01/12/2023, and at [facility] on 12/22/2021. There are scattered [...] Most Recently Relevant to Health Maintenance Insurance [facility] Care Teams News Copy Editor Relationship Specialty Start Date End Date Guanaco Gillis DO [address] [facility] [address] [place] [address] PCP - General Internal Medicine 12/14/23
== END 2024-07-02 15:50 | disposition home or self-care (01) ==
LOC: ANHIMG 15:50
PROVIDERS: PCP Internal Medicine; Visit Provider Internal Medicine
DX: M19.031 Primary osteoarthritis, right wrist (principal)
CPT/HCPCS: 73110

== ENCOUNTER 2024-07-22 15:58 | Emergency (ER) | payer OTHER, SELFPAY ==
--- NOTE | ~2024-07-22 | XR_ITS ---
EXAMINATION: XR foot RT min 3V DATE: 07/22/2024 16:11 INDICATION: Pain at the right fifth metatarsal post trauma TECHNIQUE: Dorsoplantar, two oblique and lateral views of the right foot were obtained. COMPARISON: 05/18/2021 FINDINGS: Minimally displaced intra-articular fracture at the lateral base of the right fifth metatarsal. Align ment remains essentially anatomic. No other fractures identified. 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 Moderate-sized plantar calcaneal spur. Mild soft tissue sw elling at the lateral aspect of the midfoot. No ankle joint effusion. IMPRESSION: 1. Nondisplaced intra-articular fracture at the lateral base of the right fifth metatarsal. Reviewed, dictated and finalized at location A.
--- NOTE | 2024-07-22 16:00 | ED_ITS ---
HPI - Extremity Injury (Lower) General Chief Complaint: Extremity Injury, Lower Stated Complaint: RT foot Injury Time Seen by Provider: 07/22/24 15:59 Patient presents to the [facility] with complaints of right foot pain, swelling, and bruising that began yesterday after twisting this foot. Patient reports elevating the foot without relief of swelling. Patient reports fracture in this foot in the past and believes that is what happened. Denies numbness or tingling in foot or toes Source: patient Mode of arrival: ambulatory Limitations: no limitations Related Data Allergies Allergy/AdvReac Type Severity Reaction Status Date / Time No Known Allergies Allergy Verified 07/22/24 15:59 Review of Systems Constitutional: Constitutional: Reports as per HPI, Denies chills, Denies fatigue, Denies fever(s) and Denies weakness Eyes: Eyes: Reports no additional eye complaints ENT: Reports system reviewed and no additional complaints, except as documented Cardiovascular: Cardiovascular: Reports no additional cardiovascular complaints Respiratory: Respiratory: Reports no additional respiratory complaints Musculoskeletal: Musculoskeletal: Reports as per HPI, Reports arthralgias and Reports joint swelling Integumentary/Breasts: Skin/Breast: Reports as per HPI, Denies pruritus, Denies rash and Denies skin ulcer Comments: bruising right foot Neurologic: Reports as per HPI, Denies numbness and Denies weakness Psychiatric: Psychiatric: Reports no additional psychiatric complaints Endocrine: Endocrine: Reports no additional endocrine complaints Hematologic/Lymphatic: Hematologic/Lymphatic: Reports no additional hematologic/lymphatic complaints Allergic/Immunologic: Allergic/Immunologic: Reports no additional allergic/immunologic complaints PMFSH Past Medical History Medical History Sinus tachycardia Rash Palpitations Other fatigue Family history of colon cancer Dietary counseling and surveillance (01/20/15) Acute asthmatic bronchitis Screening mammogram for breast cancer Fracture of fifth toe, right, closed Fracture of fifth toe, left, closed Elevated LFTs Abnormal TSH Chronic GERD Asthma Essential (primary) hypertension Hypercholesterolemia Vitamin D deficiency, unspecified Surgical History Surgical History History of rhinoplasty (~2001) Dr. Martinez History of nasal surgery (~2000) Family History Family History Father Patient's father is Acute myocardial infarction Sibling Diabetes mellitus Mother No problems noted. Other Family history of arthritis Family history of high cholesterol Hypertension Social History Social History Smoking status: Former smoker Tobacco type: cigarettes Second hand tobacco smoke exposure: No Smoking end date: 02/22/92 Alcohol intake: current Drinks per week: 5 Substance use: never Substance use type: does not use Do You Feel Safe in your Home?: Yes Lack of Transportation: No Lack of Food: Never True Current Housing: I Have Housing Concerned About Future Housing: No Difficulty Paying Gas/Electric Bills: No Difficulty Paying for Meds: No Currently Unemployed: No Education: Associate Degree Difficulty w/ Childcare or Family Care: No Living arrangements: with family Occupation/Education: occupation Additional occupation/education comments: XR Tech at Gender identity (if verbalized by the patient): Female Sexual Orientation (if Verbalized by the Patient): Straight or Heterosexual Spiritual care concerns: No Exam Const: General: healthy appearing and no acute distress; No diaphoretic or ill appearing Nutritional Appearance: well nourished Orientation/consciousness: patient oriented x3 Limitations: no limitations Resp: Effort & Inspection: normal respiratory effort Cardio: Rate: regular rate Skin: Rashes: no rashes Wounds: no wounds Other: bruising to dorsum of right foot Neuro: General: patient oriented x3 Speech: normal speech Gait exam (Neuro): gait abnormal (limited by pain ) Extrem: Right lower extremity: foot Details: normal capillary refill, abnormal to inspection, tenderness, toes with normal ROM, edema Location: of the dorsal foot and at the base of the 5th metatarsal, ecchymosis and vascular exam Details: dorsalis pedis pulse present, posterior tibial pulse present and normal capillary refill; abnormal to inspection, ROM of toes normal, no unusual warmth, edema noted, no abrasion, no laceration, no crepitus, no foreign bodies and no puncture wound Psych: Mental Status: mental status grossly normal Affect: normal affect Attitude: cooperative Course Course Level of Care: Express Care Visit Vital Signs Vital signs: Vital Signs Temperature 98.2 F 07/22/24 16:12 Pulse Rate 90 07/22/24 16:12 Respiratory Rate 18 07/22/24 16:12 Blood Pressure 153/90 H 07/22/24 16:12 Pulse Oximetry 100 07/22/24 16:12 Oxygen Delivery Room Air 07/22/24 16:12 Temperature 98.2 F 07/22/24 16:12 Pulse Rate 90 07/22/24 16:12 Respiratory Rate 18 07/22/24 16:12 Blood Pressure 153/90 H 07/22/24 16:12 Pulse Oximetry 100 07/22/24 16:12 Oxygen Delivery Room Air 07/22/24 16:12 MDM - Extremity Injury (Lower) MDM Narrative Medical decision making narrative: fracture 5th metatarsal my interpretation of x-ray. Patient has seen Dr. Weller in the past for fracture will place in postop shoe and continue ice, Tylenol ibuprofen. Differential Diagnosis Differential diagnosis: Likely ankle sprain and strain, fracture of toe and ankle fracture Medical Records Attestation: I reviewed the patient's medical records. Imaging Data My impression: fracture base of 5th metatarsal Discharge Plan Discharge Clinical Impression: Fracture of fifth toe, right, closed Patient Disposition: Home Condition: Stable Instructions: Antibiotic Form, Foot Fracture in Adults (ED) Additional Instructions: Wear the post op shoe at all times. May use ice several times a day for swelling May use tylenol or ibuprofen as directed for pain and swelling. Follow up with / Nithin for further evaluation. Patient Language: Sami Prescriptions: No Action alprazolam [Xanax] 0.25 mg tablet 0.25 mg PO ONCE PRN (Reason: anxiety) Qty: 30 0RF pantoprazole [Protonix] 40 mg tablet,delayed release (DR/EC) 40 mg PO BID Qty: 180 3RF nebivolol [Bystolic] 5 mg tablet 5 mg PO DAILY Qty: 90 2RF Rx Instructions: Take in PM albuterol sulfate 90 mcg/actuation HFA aerosol inhaler 2 puff inhalation QID PRN (Reason: shortness of breath or wheezing) Qty: 6.7 0RF simvastatin 40 mg tablet 40 mg PO DAILY Qty: 90 3RF fluticasone propion-salmeterol [Advair Diskus] 100-50 mcg/dose blister with device 1 ea INHALATION BID Qty: 180 3RF losartan 100 mg tablet 100 mg PO DAILY Qty: 90 2RF Follow-up/Referrals: Guanaco Gillis DO [Primary Care Provider] - Time of Disposition: 16:30
[2024-07-22 16:12] VITALS: BP 153/90; PULSE 90; RESP 18; TEMP 36.8; O2SAT 100
--- OUTSIDE RECORDS SUMMARY | 2024-07-22 18:13 | XMS_ITS | Continuity of Care Document ---
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 Role Phone Christal King Unavailable Unavailable Allergies, Adverse Reactions, Alerts Substance Reaction Status Criticality No Known Drug Allergies Other Active No I nformation Medications Medication Instructions Dosage Effective Dates (start - stop) Status Comments IPRATROPIUM 0.03% SPRAY SPRAY 1 - 2 SPRAYS IN EACH NOSTRIL 2 TIMES EVERY DAY 1-2 spray - Active ProAir HFA 90 mcg/actuation aerosol inhaler inhale 2 puff by inhalation route every 4 - 6 hours as needed - Active WIXELA 100-50 INHUB TAKE 1 PUFF BY MOUTH EVERY 12 HOURS - Active fluticasone 50 mcg/actuation nasal spray,suspension spray 2 spray (100MCG) by intranasal route every day in each nostril - Active PANTOPRAZOLE SODIUM (unknown strength) Not Available - Active simvastatin 80 mg tablet take 1 tablet by oral route every day in the evening - Active lisinopril 40 mg tablet take 1 tablet by oral route every day 40 MG - Active ipratropium bromide 0.03 % nasal spray spray 1 - 2 spray by intranasal route 2 times every day in each nostril 1-2 spray - No Longer Active Procedures Procedure Date HEALTH RISK ASSESSMENT, PATIENT-FOCUSED MOUTHPIECE PULMONARY SPIROMETRY, FUNCTION OFFICE [id number] BODY MASS INDEX DOCD SYST BP LT 130 MM HG DIAST BP 80-89 MM HG Advance Directives Directive Yes / No Effective Date File Name No Information Encounters Encounter Description Practice Location Reason(s) For Visit Diagnoses Date Provider Providers Copied on Encounter [employer], [address], [place], [place], [id number] , tel: [phone] [facility] Asthma Allergy [place] No Information 0 Brandoe Christal. [address] [place] [address], [id number], . tel:[phone] [facility], [address], [place], [place], [id number] , tel: [phone] [facility] Asthma Allergy Bos[place] No Information 0 Shine Christal. [address] [place] [address], [id number], . tel:[phone] [facility] [facility], [address], [place], [place], [id number] , tel: [phone] [facility] Asthma Allergy [place] No Information 0 Shine Christal. [address] [place] [address], [id number], . [phone] OFFICE [id number]-UZG-OG [facility] [employer], [address], [place], [place], [id number] , tel: [phone] [facility] Asthma (chief complaint) Asthma-con trol (chief complaint) Rhinitis, allergic (chief complaint) GERD (chief complaint) Moderate persistent asthma, uncomplicatedAll ergic rhinitis due to pollenAllergic rhinitis due to animal hair and danderGastro-eso phageal reflux disease without esophagitisAller gic rhinitis due to dust mite 9 Shine Christal. [address] [place] [address], [id number], . tel:[phone] Referring Provider: Saeed Yarbrough, [address] [place] [address], [address] . tel:[phone] [facility], [address], [place], [place], [id number] , tel:[phone] [facility] Moderate persistent asthma, uncomplicatedAll ergic rhinitis due to pollenOther allergic rhinitisAllergic rhinitis due to animal hair and danderGastro-eso phageal reflux disease without esophagitisViral respiratory illnessOther viral agents as the cause of diseases classified elsewhereBody mass index (BMI) 39.0-39.9, [facility] for exam of blood pressure w/o abnormal findings 8 Shine Christal. [address] [place] [address], [id number], . tel:[phone] Referring Provider: Saeed Yarbrough, [address] [place] [address], [address] . tel:[phone] [facility], [address], [place], [place], [id number] , tel:[phone] [facility] Moderate persistent asthma, uncomplicatedAll ergic rhinitis due to pollenOther allergic rhinitisAllergic rhinitis due to animal hair and danderGastro-eso phageal reflux disease without esophagitis 8 Shine Christal. [address] [place] [address], [id number], . tel:[phone] Referring Provider: Saeed Yarbrough, [address] [place] [address], [address] . tel:[phone] [facility], [address], [place], [id number] , tel:[phone] [facility] Moderate persistent asthma without complicationAlle rgic rhinitis due to pollenAllergic rhinitis due to animal hair and danderGastro-eso phageal reflux disease without esophagitis 7 Shine Christal. [address] [place] [address], [id number], . tel:[phone] Referring Provider: Saeed Yarbrough, [address] [place] [address], [address] . tel:[phone] [facility], [address], [place], [place], [id number] , [place] tel: [phone] [facility] Moderate persistent asthma without complicationAlle rgic rhinitis due to pollenAllergic rhinitis due to animal hair and danderGastro-eso phageal reflux disease without esophagitis 6 Zenon Tipton. [address], [id number], [place]. tel:[phone] Referring Provider: Wade Bell DO, [address], [place], [place], [facility]. tel:[phone] [facility], [address], [place], [place], [address] , [place] tel: [phone] [facility] Moderate persistent asthma without complicationAlle rgic rhinitis due to pollenAllergic rhinitis due to animal hair and danderOther allergic rhinitisGastro-e sophageal reflux disease without esophagitis 6 Carlos Alberto Siegel. [address] [place] [address], [id number], . tel:[phone] Referring Provider: Saeed Yarbrough, [address] [place] [address], [address] . tel:[phone] [facility], [address], [place], [place], [address] , tel: [phone] [facility] INTRINSIC ASTHMA, UNSPECIFIEDAller gic rhinitis due to other allergenGERD 5 Zenon Tipton. [address], [id number], [place]. tel:[phone] Referring Provider: Wade Bell DO, [address], [place], [address]. tel:[phone] [facility], [address], [place], [place], [id number] , [place] tel: [phone] [facility] INTRINSIC ASTHMA, UNSPECIFIEDAller gic rhinitis due to other allergenGERD 5 Zenon Tiptno. [address] [facility], [address], [id number], . [phone] Referring Provider: Wade Bell DO, [address] [place] [address] [address], [address]. tel:[phone] [facility], [address], [place], [place], [id number] , tel: [phone] [facility] INTRINSIC ASTHMA, UNSPECIFIEDAller gic rhinitis due to other allergenGERD 4 Zenon Tipton. [address] [facility], [address], [id number], . tel:[phone] Referring Provider: Wade Bell DO, [address] [place] [address] [address] [place] [address], [address]. tel:[phone] [facility], [address], [place], [place], [id number] , tel: [phone] [facility] INTRINSIC ASTHMA, UNSPECIFIEDAller gic rhinitis due to other allergenChronic rhinitisGERD 3 Karine Marques. [address], [address], [id number]. tel:[phone] Referring Provider: Saeed Yarbrough, [address] [place] [address], [address] . tel:[phone] [facility], [address], [place], [place], [id number] , [place] tel: [phone] [facility] ASTHMA,UNSPECIFI ED TYPE, UNSPECIFIEDAller gic rhinitis due to other allergenChronic rhinitisEsophage al reflux 3 Karine Marques. [address], [place] [address], [place], [place], [id number]. tel:[phone] Referring Provider: Saeed Yarbrough, [address] [place] [address], [address] . tel:[phone] [facility], [address], [place], [place], [id number] , tel: [phone] [facility] INTRINSIC ASTHMA, UNSPECIFIEDAller gic rhinitis due to other allergenChronic rhinitis 2 Zenon Tipton. [address], [id number], . tel:[phone] Referring Provider: Wade Bell DO, [address] [place] [address] [address] [place] [address], [address]. tel:[phone] [facility], [address], [place], [place], [id number] , [place] tel: [phone] [facility] INTRINSIC ASTHMA, UNSPECIFIEDAller gic rhinitis due to other allergenNASAL & SINUS DIS NEC 2 Zenon Tipton. [address], [id number], . tel:[phone] Referring Provider: Wade Bell DO, [address] [place] [address] [address] [place] [address], [address]. tel:[phone] [facility], [address], [place], [place], [id number] , [place] tel: [phone] [facility] INTRINSIC ASTHMA, UNSPECIFIEDALLER GIC RHINITIS NECNASAL & SINUS DIS NEC 1 Zenon Tipton. [address] [place] [address], [id number], . tel:[phone] Referring Provider: Wade Bell DO, [address] [place] [address] [address] [place] [address], [address]. tel:[phone] [facility], [address], [place], [place], [id number] , [place] tel: [phone] [facility] INTRINSIC ASTHMA, UNSPECIFIEDAller gic rhinitis due to other allergenNASAL & SINUS DIS NECEsophageal reflux 1 Zenon Tipton. [address], [id number], . tel:[phone] Referring Provider: Wade Bell DO, [address] [place] [address] [address] [place] [address], [address]. tel:[phone] [facility], [address], [place], [place], [id number] , tel: [phone] [facility] RHINITIS DUE TO POLLENALLERGIC RHINITIS NEC 0 Zenon Tipton. [address], [id number], . tel:[phone] [facility], [address], [place], [place], [address] , tel: [phone] [facility] NASAL & SINUS DIS NECINTRINSIC ASTHMA NOS 0 Zenon Tipton. [address], [id number], . tel:[phone] [facility], [address], [place], [place], [id number] , tel: [phone] [facility] No Information 4 Zenon Tipton. [address] [place] [address], [id number], . tel:[phone] [facility], [address], [place], [place], [address] , tel: [phone] [facility] AC MAXILLARY SINUSITIS 2 Zenon Tipton. [address] [place] [address], [id number], . tel:[phone] Family History Family Member Type Diagnosis Age At Onset No Information Payers Payer name Insurance type Covered green party ID Marlenea bobofaisal(s) R [facility] [id number] Social History Type Description Quantity Date Captured Comments Sex Female Smoking Status No Information Chief Complaint And Reason For Visit No Information Reason For Referral Reason For Referral No Information History Of Present Illness Encounter Date Complaint History Of Prese nt Illness GERD (comments) Continues to use Pantoprazole due to frequent throat clearing Feeling well controlled Asthma Rhinitis, allergic GERD Asthma-control Naa was seen t katie for asthma management. Her asthma is classified as Moderate Persistent.Since Her last visit for asthma control on 01/31/2018, She has had asthma related:-hospitalizations: NO-ER/Urgent care visits: NO-oral steroids: NO-rescue inhaler use: NO-Missed school/work: NOAsthma Control Test score: 251. Unlimited activity: None of the time (5)2. Caused shortness of breath: Not at all (5)3. Interrupted sleep: Not at all (5)4. How often using rescue med: Not at all (5)5. Personal rating of control: Completely controlled (5)The asthma is Well Controlled.Known triggers include: colds.Environmental exposure/control:Smoker: YESTobacco exposure: NOPrevious allergy testing was on 05/25/2007. [employer] - Saeed Yarbrough. Results - dust mites, cat, dog, grass, ragweed.Spirometry was last performed on 01/31/2018. Results - WNL. Asthma (comments) Last office vi sit 01/31/18Continues to use Advair (100/50) 1 click twice daily and Proair MDI prnWill have more SOB with exertion, if misses dose of Advair, although she is very consistentCan't remember the last time she used ProairDenies trouble with exertion, brine maker or nocturnal symptoms No exacerbations in the interimShe feels well controlled at this time Rhinitis, allergic (comments) Al lergens: POLLEN, DANDER, COCKROACH on testing from 05/25/2007. Completed 5 years of immunotherapy (08/28-09/02) with good results.Continues to use Fluticasone 2 sprays each nostril qhs and Emily 180 mg in AM and Ipratropium bromide nasal qAM No sinusitis in the interimShe felt well controlled in the Spring Functional Status Date Functional Assessmen t No Information Instructions Date Instruction Additional Infor yosef Pulmonary functions performed today with good effort were MILDLY OBSTRUCTED and is similar to the reading from the last office visit. Asthma has overall been stable. Continue with your daily controller medications including Advair 100/50 1 inhalation twice daily. Continue to use the rescue medication Proair, as needed. Call for use of the rescue medication that is more than 2 times per week, difficulties with frequent night time awakenings, difficulties with exercise, or prolonged cough associated with colds. Related to Moderate persistent asthma, uncomplicated Continue with allerg ic rhinitis medications Fexofenadine, Flonase, and Ipratropium [place].For better control of symptoms keep the windows closed in the house and in the car.Avoid being outside during times when the counts you are most sensitive to are high. Related to Allergic rhinitis due to pollen Continue to avoid an imal dander as much as possible. Related to Allergic rhinitis due to animal hair and dander Encase mattress, box springs and pillows in dust mite covers, wash your bedding once a week in hot water, clean the carpeting thoroughly once a week with a quality HEPA vacuum, use a dehumidifier to keep the relative indoor humidity below 50%, keep pillows only a year, and mattress/box spring <7 years. Related to Allergic rhinitis due to dust mite Continue with presen t medication for reflux Pantoprazole. as directed. In addition for better control of symptoms:-Avoid consumption of alcohol, caffeine, chocolate, carbonated beverages, fatty foods, tomato and tomato products.-Sleep elevated on adjustable bed if possible-Avoid eating 2 hours prior to lying down Related to Gastro-esophageal reflux disease without esophagitis Assessments Type Assessment Date No Information Patient Care Teams Name Effective Dates (start - stop) Status Members No Information
--- OUTSIDE RECORDS SUMMARY | 2024-07-22 18:13 | XMS_ITS | Continuity of Care Document ---
Author Organization [employer] [facility] Address [address] [place] [address] Phone Care Team Providers Care Consumer Advocate Name Role Phone Christal King Unavailable Unavailable [...] SODIUM (unknown strength) Not Available - Active lisinopril 40 mg tablet take 1 tablet by oral route every day 40 MG - Active simvastatin 80 mg tablet take 1 tablet by oral route every day in the evening - Active ipratropium bromide 0.03 % nasal spray spray 1 - 2 spray by intranasal route 2 times every day in each nostril 1-2 spray - No Longer Active Procedures Procedure Date HEALTH RISK ASSESSMENT, PATIENT-FOCUSED MOUTHPIECE PULMONARY SPIROMETRY, FUNCTION OFFICE [id number] BODY MASS INDEX DOCD SYST BP LT 130 MM HG DIAST BP 80-89 MM HG Advance Directives Directive Yes / No Effective Date File Name No Information Encounters Encounter Description Practice Location Reason(s) For Visit Diagnoses Date Provider Providers Copied on Encounter [facility], [address], [place], [place], [id number] , tel: [phone] [facility] [place] No Information 0 Brandoe Christal. [address] [place] [address], [id number], . tel:[phone] [facility], [address], [place], [place], [id number] , tel: [phone] [facility] [place] No Information 0 Shine Christal. [address] [place] [address], [id number], . tel:[phone] [facility], [address], [place], [place], [id number] , tel: [phone] [facility] [place] No Information 0 Shine Christal. [address] [place] [address], [id number], . [phone] OFFICE [facility] [employer] [facility], [address], [place], [place], [id number] , tel: [phone] [facility] Asthma (chief complaint) Asthma-con trol (chief complaint) Rhinitis, allergic (chief complaint) GERD (chief complaint) Moderate persistent asthma, uncomplicatedAll ergic rhinitis due to pollenAllergic rhinitis due to animal hair and danderGastro-eso phageal reflux disease without esophagitisAller gic rhinitis due to dust mite 9 Shine Christal. [address] [place] [address], [id number], . tel:[phone] Referring Provider: Saeed Yarbrough, [address] [place] [address], [address] . tel:[phone] [facility], [address], [place], [place], [id number] , tel:[phone] [facility] Moderate persistent asthma, uncomplicatedAll ergic rhinitis due to pollenOther allergic rhinitisAllergic rhinitis due to animal hair and danderGastro-eso phageal reflux disease without esophagitisViral respiratory illnessOther viral agents as the cause of diseases classified elsewhereBody mass index (BMI) 39.0-39.9, [facility] for exam of blood pressure w/o abnormal findings 8 Shine Christal. [address] [place] [address], [id number], . tel:[phone] Referring Provider: Saeed Yarbrough, [address] [place] [address], [address] . tel:[phone] [facility], [address], [place], [place], [id number] , tel:[phone] [facility] Moderate persistent asthma, uncomplicatedAll ergic rhinitis due to pollenOther allergic rhinitisAllergic rhinitis due to animal hair and danderGastro-eso phageal reflux disease without esophagitis 8 Shine Christal. [address] [place] [address], [id number], . tel:[phone] Referring Provider: Saeed Yarbrough, [address] [place] [address], [address] . tel:[phone] [facility], [address], [place], [id number] , tel:[phone] [facility] Moderate persistent asthma without complicationAlle rgic rhinitis due to pollenAllergic rhinitis due to animal hair and danderGastro-eso phageal reflux disease without esophagitis 7 Shine Christal. [address] [place] [address], [id number], . tel:[phone] Referring Provider: Saeed Yarbrough, [address] [place] [address], [address] . tel:[phone] [facility], [address], [place], [place], [address] , [place] tel: [phone] [facility] Moderate persistent asthma without complicationAlle rgic rhinitis due to pollenAllergic rhinitis due to animal hair and danderGastro-eso phageal reflux disease without esophagitis 6 Zenon Tipton. [address], [id number], [place]. tel:[phone] Referring Provider: Wade Bell DO, [address], [place], [place], [facility]. tel:[phone] [facility], [address], [place], [place], [id number] , [place] tel: [phone] [facility] Moderate persistent asthma without complicationAlle rgic rhinitis due to pollenAllergic rhinitis due to animal hair and danderOther allergic rhinitisGastro-e sophageal reflux disease without esophagitis 6 Carlos Alberto Siegel. [address] [place] [address], [id number], . tel:[phone] Referring Provider: Saeed Yarbrough, [address] [place] [address], [address] . tel:[phone] [facility], [address], [place], [place], [id number] , tel: [phone] [facility] INTRINSIC ASTHMA, UNSPECIFIEDAller gic rhinitis due to other allergenGERD 5 Zenon Tipton. [address], [id number], [place]. tel:[phone] Referring Provider: Wade Bell DO, [address], [place], [address]. tel:[phone] [facility], [address], [place], [place], [address] , [place] tel: [phone] [facility] INTRINSIC ASTHMA, UNSPECIFIEDAller gic rhinitis due to other allergenGERD 5 Zenon Tipton. [address] [facility], [address], [id number], . [phone] Referring Provider: Wade Bell DO, [address] [place] [address] [address], [address]. tel:[phone] [facility], [address], [place], [place], [id number] , tel: [phone] [facility] INTRINSIC ASTHMA, UNSPECIFIEDAller gic rhinitis due to other allergenGERD 4 Zenon Tipton. [address] [facility], [address], [id number], . tel:[phone] Referring Provider: Wade Bell DO, [address] [place] [address] [address] [place] [address], [address]. tel:[phone] [facility], [address], [place], [place], [id number] , tel: [phone] [facility] INTRINSIC ASTHMA, UNSPECIFIEDAller gic rhinitis due to other allergenChronic rhinitisGERD 3 Karine Marques. [address], [address], [id number]. tel:[phone] Referring Provider: Saeed Yarbrough, [address] [place] [address], [address] . tel:[phone] [facility], [address], [place], [place], [id number] , [place] tel: [phone] [facility] ASTHMA,UNSPECIFI ED TYPE, UNSPECIFIEDAller gic rhinitis due to other allergenChronic rhinitisEsophage al reflux 3 Karine Marques. [address], [place] [address], [place], [place], [id number]. tel:[phone] Referring Provider: Saeed Yarbrough, [address] [place] [address], [address] . [phone] [facility], [address], [place], [place], [address] , tel: [phone] [facility] INTRINSIC ASTHMA, UNSPECIFIEDAller gic rhinitis due to other allergenChronic rhinitis 2 Zenon Tipton. [address], [id number], . tel:[phone] Referring Provider: Wade eBll DO, [address] [place] [address] [address] [place] [address], [address]. tel:[phone] [facility], [address], [place], [place], [id number] , [place] tel: [phone] [facility] INTRINSIC ASTHMA, UNSPECIFIEDAller gic rhinitis due to other allergenNASAL & SINUS DIS NEC 2 Zenon Tipton. [address], [id number], . tel:[phone] Referring Provider: Wade Bell DO, [address] [place] [address] [address] [place] [address], [address]. tel:[phone] [facility], [address], [place], [place], [address] , [place] tel: [phone] [facility] INTRINSIC ASTHMA, UNSPECIFIEDALLER GIC RHINITIS NECNASAL & SINUS DIS NEC 1 Zenon Tipt[id number] [place] [address], [id number], . tel:[phone] Referring Provider: Wade Bell DO, [address] [place] [address] [address] [place] [address], [address]. tel:[phone] [facility], [address], [place], [place], [id number] , [place] tel: [phone] [facility] INTRINSIC ASTHMA, UNSPECIFIEDAller gic rhinitis due to other allergenNASAL & SINUS DIS NECEsophageal reflux 1 Zenon Tipton. [address], [id number], . tel:[phone] Referring Provider: Wade Bell DO, [address] [place] [address] [address] [place] [address], [address]. tel:[phone] [facility], [address], [place], [place], [id number] , tel: [phone] [facility] RHINITIS DUE TO POLLENALLERGIC RHINITIS NEC 0 Zenon Tipton. [address], [id number], . tel:[phone] [facility], [address], [place], [place], [address] , tel: [phone] [facility] NASAL & SINUS DIS NECINTRINSIC ASTHMA NOS 0 Zenon Tipton. [address], [id number], . tel:[phone] [facility], [address], [place], [place], [address] , tel: [phone] [facility] No Information 4 Zenon Tipton. [address] [place] [address], [id number], . tel:[phone] [facility], [address], [place], [place], [address] , tel: [phone] [facility] AC MAXILLARY SINUSITIS 2 Zenon Tipton. [address] [place] [address], [id number], . tel:[phone] Family History Family Member Type Diagnosis Age At Onset No Information Payers Payer name Insurance type Covered alliance party ID Marlenea bobofaisal(s) R [facility] [id number] Social History Type Description Quantity Date Captured [...] exposure: NOPrevious allergy testing was on 05/25/2007. [facility] - Saeed Yarbrough. Results - dust mites, cat, dog, grass, ragweed.Spirometry was last performed on 01/31/2018. Results - WNL. Asthma (comments) Last office vi sit 01/31/18Continues to use Advair (100/50) 1 click twice daily and Proair MDI prnWill have more SOB with exertion, if misses dose of Advair, although she is very consistentCan't remember the last time she used ProairDenies trouble with exertion, fnps or nocturnal symptoms No exacerbations in the [...] ic rhinitis medications Fexofenadine, Flonase, and Ipratropium [place].For better control of symptoms keep the windows [...]
--- OUTSIDE RECORDS SUMMARY | 2024-07-22 18:13 | XMS_ITS | Referral Summary ---
Author Organization [facility] Address [address] [place] [address] Care Team Providers Care Apricot Washer Name Role Phone Guanaco Gillis DO Primary Care Provider [phone] Social History Tobacco Use Types Packs/Day Years Used Date Smoking Tobacco: Never Assessed Comments Unknown Sex and Gender Information Value Date Recorded Sex Assigned at Not on file Legal Sex Female 2:42 AM ADVERTISING CONSULTANT Gender Identity Not on file Sexual Orientation Not on file Plan of Treatment Not on file Procedures Procedure Name Priority Date/Time Associated Diagnosis Comments SCREENING MAMMOGRAM BILATERAL W MAULIK Schedule Routine, Read Routine (OP Routine) 01/17/2024 9:53 AM ADVERTISING CONSULTANT Screening mammogram, encounter for from Last 3 Months or Most Recently Relevant to Health Maintenance Results * Screening Mammogram Bilateral W Maulik (01/17/2024 9:53 AM ADVERTISING CONSULTANT) Anatomical Region Laterality Modality Breast Bilateral Mammography Narrative 01/18/2024 12:57 PM ADVERTISING CONSULTANT Mammogram Technique: Bilateral Digital Breast Tomosynthesis, Bilateral C-view 2D Screening mammogram. Views obtained: bilateral craniocaudal and bilateral mediolateral oblique. Computer Aided Detection was performed. Mammogram Findings: The present examination has been compared to prior imaging studies performed at [facility] on 06/17/2014, 08/07/2015, 08/11/2016, 08/23/2016, 08/19/2017, 09/07/2018, 10/12/2019, 11/10/2020 and 01/12/2023, and at [facility] on 12/22/2021. There are scattered areas of [...] compared to prior imaging studies performed at [facility] on 06/17/2014, 08/07/2015,08/11/2016, 08/23/2016, 08/19/2017, 09/07/2018, 10/12/2019, 11/10/2020 and01/12/2023, and at [facility] on 12/22/2021. There are scattered areas of [...] Most Recently Relevant to Health Maintenance Insurance [facility] Care Teams Apricot Washer Relationship Specialty Start Date End Date Guanaco Gillis DO [address] [address] PCP - General Internal Medicine 12/14/23
--- OUTSIDE RECORDS SUMMARY | 2024-07-22 18:13 | XMS_ITS | Clinical Summary ---
Author Organization [facility] Address [address] [place] [address] Care Team Providers Care Electric Operator Name Role Phone Guanaco Gillis DO Primary Care Provider [phone] Social History Tobacco Use Types Packs/Day Years Used Date Smoking Tobacco: Never Assessed Comments Unknown Sex and Gender Information Value Date Recorded Sex Assigned at Not on file Legal Sex Female 2:42 AM TAP PULLER Gender Identity Not on file Sexual Orientation [...] ( season) 2023 02/29/2020, 02/08/2020 Influenza Vaccine (Season Ended) 2024 Breast Cancer Screening-Mammogram 01/16/2025 01/17/2024, 01/12/2023, 12/22/2021, Additional history exists Pneumococcal vaccine <65 Aged Out 10/25/2020 No longer eligible based on patient's age to complete this topic Procedures Procedure Name Priority Date/Time Associated Diagnosis Comments SCREENING MAMMOGRAM BILATERAL W MAULIK Schedule Routine, Read Routine (OP Routine) 01/17/2024 9:53 AM TAP PULLER Screening mammogram, encounter for from Last 3 Months or Most Recently Relevant to Health Maintenance Results * Screening Mammogram Bilateral W Maulik (01/17/2024 9:53 AM TAP PULLER) Anatomical Region Laterality Modality Breast Bilateral Mammography Narrative 01/18/2024 12:57 PM TAP PULLER Mammogram Technique: Bilateral Digital Breast Tomosynthesis, Bilateral C-view 2D Screening mammogram. Views obtained: bilateral craniocaudal and bilateral mediolateral oblique. Computer Aided Detection was performed. Mammogram Findings: The present examination has been compared to prior imaging studies performed at [facility] on 06/17/2014, 08/07/2015, 08/11/2016, 08/23/2016, 08/19/2017, 09/07/2018, 10/12/2019, 11/10/2020 and 01/12/2023, and at [facility] on 12/22/2021. There are scattered [...] compared to prior imaging studies performed at [facility] on 06/17/2014, 08/07/2015,08/11/2016, 08/23/2016, 08/19/2017, 09/07/2018, 10/12/2019, 11/10/2020 and01/12/2023, and at [facility] on 12/22/2021. There are scattered [...] Most Recently Relevant to Health Maintenance Insurance [facility] Address: [address] [place] [phone] [facility] Address: [address] [place] [phone] [facility] Address: [facility] [address] [place] [address] Care Teams Electric Operator Relationship Specialty Start Date End Date Guanaco Gillis DO [address] [facility] [address] [place] [address] PCP - General Internal Medicine 12/14/23
== END 2024-07-22 16:37 | disposition home or self-care (01) ==
PROVIDERS: Emergency Provider Nurse Practitioner Family; PCP Internal Medicine
DX: S92.354A Nondisplaced fracture of fifth metatarsal bone, right foot, initial encounter for closed fracture (principal); X50.1XXA Overexertion from prolonged static or awkward postures, initial encounter; S92.514A Nondisplaced fracture of proximal phalanx of right lesser toe(s), initial encounter for closed fracture; Z87.891 Personal history of nicotine dependence; K21.9 Gastro-esophageal reflux disease without esophagitis; I10 Essential (primary) hypertension; E78.00 Pure hypercholesterolemia, unspecified; J45.909 Unspecified asthma, uncomplicated
CPT/HCPCS: 73630; 99214; G0463

== ENCOUNTER 2024-09-07 08:38 | Outpatient (CLI) | payer OTHER, SELFPAY ==
--- NOTE | ~2024-09-07 | DEXA_ITS ---
Bone Density Report Name: YURI REDDING Age: 58 Sex: Female Ethnicity: White Date of : 1965 Indication: postmenopausal; screening for osteoporosis; asthma or emphysema; Referring Provider: DHIRAJ LUO Study: Bone densitometry was performed. Exam Date: September 07, 2024 Accession number: [id number] Bone Density: Region BMD T-score Z-score Classification AP Spine(L1-L4) 1.158 1.0 2.5 Normal Femoral Neck (Left) 0.880 0.3 1.6 Normal Total Hip (Left) 1.197 2.1 3.1 Normal Femoral Neck (Right) 0.827 -0.2 1.1 Normal Total Hip (Right) 1.072 1.1 2.1 Normal Total Hip Mean 1.135 1.6 2.6 Normal World Health Organization criteria for BMD impression classify patients as: Normal (T-score at or above -1.0), Osteopenia (T-score between -1.0 and -2.5), or Osteoporosis (T-score at or below -2.5). 10-year Fracture Risk: FRAX not reported because: All T-scores for Spine Total, Hip Total, Femoral Neck at or above -1.0 Clinical Information Provided by Patient: Has used the following medications: Vitamin D, Calcium Has the following medical conditions: Asthma or Emphysema Patient maximum height was 63 Menopause Age: 53 No regular weight bearing exercise Does not regularly consume dairy products Drinks caffeinated beverages Onset of menses at age 10 Number of children 2 Impression: The patient has normal bone mass. Discussion: BONE DENSITY IS ABOVE THE MINIMUM DESIRABLE LEVEL AT ALL SKELETAL SITES TESTED. This patient?s bone mineral density is above the minimum desirable level (T-score -1.0 or better) at all sites measured. The patient should follow a healthful lifestyle (good nutrition with adequate calcium and vitamin D, and appropriate weight-bearing exercise). Follow-Up: Consider repeating this study in 5 years or sooner if there is some new clinical indication. Reported by: KANDY on 09/07/2024 9:18:00 AM. Reviewed, dictated and finalized at location A.
--- OUTSIDE RECORDS SUMMARY | 2024-09-07 08:42 | XMS_ITS | Referral Summary ---
Author Organization [facility] Address [address] [place] [address] Care Team Providers Care Administrative Services Specialist Name Role Phone Guanaco Gillis DO Primary Care Provider [phone] Social History Tobacco Use Types Packs/Day Years Used Date Smoking Tobacco: Never Assessed Comments Unknown Sex and Gender Information Value Date Recorded Sex Assigned at Not on file Legal Sex Female 2:42 AM MEDICAL RECORDS CODER Gender Identity Not on file Sexual Orientation Not on file Plan of Treatment Not on file Procedures Procedure Name Priority Date/Time Associated Diagnosis Comments SCREENING MAMMOGRAM BILATERAL W MAULIK Schedule Routine, Read Routine (OP Routine) 01/17/2024 9:53 AM MEDICAL RECORDS CODER Screening mammogram, encounter for from Last 3 Months or Most Recently Relevant to Health Maintenance Results * Screening Mammogram Bilateral W Maulik (01/17/2024 9:53 AM MEDICAL RECORDS CODER) Anatomical Region Laterality Modality Breast Bilateral Mammography Narrative 01/18/2024 12:57 PM MEDICAL RECORDS CODER Mammogram Technique: Bilateral Digital Breast Tomosynthesis, Bilateral C-view 2D Screening mammogram. Views obtained: bilateral craniocaudal and bilateral mediolateral oblique. Computer Aided Detection was performed. Mammogram Findings: The present examination has been compared to prior imaging studies performed at [facility] on 06/17/2014, 08/07/2015, 08/11/2016, 08/23/2016, 08/19/2017, 09/07/2018, 10/12/2019, 11/10/2020 and 01/12/2023, and at [facility] on 12/22/2021. There are scattered areas of [...] compared to prior imaging studies performed at [facility] on 06/17/2014, 08/07/2015,08/11/2016, 08/23/2016, 08/19/2017, 09/07/2018, 10/12/2019, 11/10/2020 and01/12/2023, and at [facility] on 12/22/2021. There are scattered areas of [...] Most Recently Relevant to Health Maintenance Insurance [facility]PP[facility] Address: [address] [place] [phone] [facility] H[facility]/PPO Address: [address] [place] [phone] [facility] H[facility]/PPO Address: [address] [place] [phone] Care Teams Administrative Services Specialist Relationship Specialty Start Date End Date Guanaco Gillis DO [address] [address] PCP - General Internal Medicine 12/14/23
--- OUTSIDE RECORDS SUMMARY | 2024-09-07 08:42 | XMS_ITS | Clinical Summary ---
Author Organization [facility] Address [address] [place] [address] Care Team Providers Care Geology Technician Name Role Phone Guanaco Gillis DO Primary Care Provider [phone] Social History Tobacco Use Types Packs/Day Years Used Date Smoking Tobacco: Never Assessed Comments Unknown Sex and Gender Information Value Date Recorded Sex Assigned at Not on file Legal Sex Female 2:42 AM SURGICAL GARMENT ASSEMBLY SUPERVISOR Gender Identity Not on file Sexual Orientation [...] Read Routine (OP Routine) 01/17/2024 9:53 AM SURGICAL GARMENT ASSEMBLY SUPERVISOR Screening mammogram, encounter for from Last 3 Months or Most Recently Relevant to Health Maintenance Results * Screening Mammogram Bilateral W Maulik (01/17/2024 9:53 AM SURGICAL GARMENT ASSEMBLY SUPERVISOR) Anatomical Region Laterality Modality Breast Bilateral Mammography Narrative 01/18/2024 12:57 PM SURGICAL GARMENT ASSEMBLY SUPERVISOR Mammogram Technique: Bilateral Digital Breast Tomosynthesis, Bilateral C-view 2D Screening mammogram. Views obtained: bilateral craniocaudal and bilateral mediolateral oblique. Computer Aided Detection was performed. Mammogram Findings: The present examination has been compared to prior imaging studies performed at [facility] on 06/17/2014, 08/07/2015, 08/11/2016, 08/23/2016, 08/19/2017, 09/07/2018, 10/12/2019, 11/10/2020 and 01/12/2023, and at [facility] on 12/22/2021. There are scattered areas [...] compared to prior imaging studies performed at [facility] on 06/17/2014, 08/07/2015,08/11/2016, 08/23/2016, 08/19/2017, 09/07/2018, 10/12/2019, 11/10/2020 and01/12/2023, and at [facility] on 12/22/2021. There are scattered areas [...] Recently Relevant to Health Maintenance Insurance [facility] Care Teams Geology Technician Relationship Specialty Start Date End Date Guanaco Gillis DO [address] [facility] [address] [place] [address] PCP - General Internal Medicine 12/14/23
== END 2024-09-07 08:39 | disposition home or self-care (01) ==
LOC: ANHIMG 08:39
PROVIDERS: PCP Internal Medicine; Visit Provider Internal Medicine
DX: Z78.0 Asymptomatic menopausal state (principal)
CPT/HCPCS: 77080

== ENCOUNTER 2025-02-05 07:18 | Outpatient (CLI) | payer OTHER, SELFPAY ==
--- OUTSIDE RECORDS SUMMARY | 2025-02-05 07:25 | XMS_ITS | Clinical Summary ---
Author Organization [facility] al Address [address] [place] [address] Care Team Providers Care Opal Polisher Name Role Phone Guanaco Gillis DO Primary Care Provider [phone] Encounters Date Type Department Care Team Description 02/01/2025 8:14 AM [facility] - 02/01/2025 11:59 PM [facility] Hospital Encounter [facility] ([facility] [address] [place] [phone] Abnormality of left breast on screening mammography Discharge Disposition: Discharge to home or self care 01/25/2025 9:15 AM [facility] - 01/25/2025 11:59 PM [facility] Hospital Encounter [facility] ([facility]) [address] [place] [id number] Screening mammogram, encounter for Discharge Disposition: Discharge to home or self care from Last 3 Months Family History Medical History Relation Name Comments Breast cancer Mother Triple neg Ovarian cancer Neg Hx Pancreatic cancer Neg Hx Prostate cancer Neg Hx Relation Name Status Comments Mother Social History Tobacco Use Types Packs/Day Years Used Date Smoking Tobacco: Never Assessed Comments Unknown Sex and Gender Information Value Date Recorded Sex Assigned at Not on file Legal Sex Female 2:42 AM [facility] Gender Identity Not on file Sexual Orientation Not on file Obstetrics History Para Term AB IAB SAB Ectopic Multiple Livin g Live Births 2 2 Date Outcome GA Total Labor Labor/2nd/3rd Weight Sex Type Anes PTL Naz A1 A5 Name Clin Last Filed Vital Signs Vital Sign Reading Time Taken Comments Blood Pressure - - Pulse - - Temperature - - Respiratory Rate - - Oxygen Saturation - - Inhaled Oxygen Concentration - - Weight 77.1 kg (170 lb) 01/25/2025 9:36 AM [facility] Height 160 cm (5' 3) 01/25/2025 9:36 AM [facility]LO[facility] Body Mass Index 30.11 01/25/2025 9:36 AM [facility]LOOR[facility] Plan of Treatment Health Maintenance Due Date Last Done Comments Cervical Cancer Screening 1965 Colon Cancer Screening-Colonoscopy 1965 Depression Screening 1965 Hepatitis C Screening 1965 DTaP/Tdap/Td Vaccine (1 - Tdap) 10/15/1974 Regular Well Visit/Exam 18-64 10/15/1981 Covid-19 Vaccine ( - season) 2024 11/28/2020, 03/21/2020, 02/29/2020, Additional history exists Influenza Vaccine (#1) 2024 12/06/2023, 2022 Breast Cancer Screening-Mammogram 01/25/2026 01/25/2025, 01/17/2024, 01/12/2023, Additional history exists Pneumococcal vaccine <65 Aged Out 10/25/2020 No longer eligible based on patient's age to complete this topic Zoster Vaccine Completed 12/26/2020, 10/25/2020 Hepatitis B Screening Completed 08/23/2022 Procedures Procedure Name Priority Date/Time Associated Diagnosis Comments DIAGNOSTIC MAMMOGRAM LEFT W MAULIK Routine 02/01/2025 8:35 AM [facility] Abnormality of left breast on screening mammography SCREENING MAMMOGRAM BILATERAL W MAULIK Schedule Routine, Read Routine (OP Routine) 01/25/2025 9:45 AM [facility] FLOORHAND Screening mammogram, encounter for from Last 3 Months Results * Diagnostic Mammogram Left W Maulik (02/01/2025 8:35 AM [facility] FLOOR[facility]) Anatomical Region Laterality Modality Breast Left Mammography 02/01/2025 8:44 AM [facility] Impressions 02/01/2025 9:10 AM [facility] FLOOR[facility] 1. Queried asymmetry in the left upper breast at mid depth corresponds to overlying benign breast tissue. 2. No evidence of malignancy in the left breast. OVERALL FINAL ASSESSMENT: BI-RADS Category 1: Negative. RECOMMENDATION: Annual screening mammography is recommended. Dictated by: Nicanor Nelson M.D. The radiology attending physician has personally reviewed this study, and had reviewed and/or edited this written report and agrees with it. Electronically signed by: Kati Sadler M.D. Narrative 02/01/2025 9:10 AM [facility]IT FLOOR[facility] EXAMINATION: LEFT UNILATERAL DIGITAL DIAGNOSTIC MAMMOGRAM AND DIGITAL BREAST TOMOSYNTHESIS HISTORY: 59-year-old woman presents for screening detected left breast asymmetry seen on the MLO view. COMPARISON: Mammogram 01/25/2025 and priors dating back to 2019. TECHNIQUE: Full field digital mammographic views of the LEFT breast were performed, including computer aided detection (CAD) and digital breast tomosynthesis (DBT). BREAST PARENCHYMAL COMPOSITION: There are scattered areas of fibroglandular density. MAMMOGRAM FINDINGS: The queried asymmetry in the left upper breast at mid depth effaces on additional spot views obtained in keeping with overlying benign breast tissue. [facility] MAMMO PROCEDURES Final Resul t * (ABNORMAL) Screening Mammogram Bilateral W Maulik (01/25/2025 9:45 AM [facility] UNIT FLOORHAND) Anatomical Region Laterality Modality Breast Bilateral Mammography Impressions 01/28/2025 12:36 PM [facility] UNIT FLOORHAND Left 1) Asymmetry: Left breast asymmetry in the upper region, middle depth. Diagnostic mammogram with possible ultrasound is recommended. Right No evidence of malignancy. OVERALL BI-RADS FINAL ASSESSMENT: 0 - Incomplete: Needs Additional Imaging Evaluation RECOMMENDATIONS: Recommend left breast diagnostic mammogram with possible ultrasound. Narrative 01/28/2025 12:36 PM [facility] FLOORHAND EXAMINATION: Screening Mammogram Bilateral W Maulik: 01/25/2025 COMPARISON: Relevant prior studies available at the time of interpretation were reviewed, including the most recent mammogram on: 01/17/2024. TECHNIQUE: Mammography was performed with 2D and digital breast tomosynthesis (DBT) images. CAD was utilized. BREAST PARENCHYMAL COMPOSITION: There are scattered areas of fibroglandular density. FINDINGS: Left 1) Asymmetry: There is an asymmetry in the upper region of the left breast, middle depth on the MLO view. This finding needs additional imaging evaluation. Right There is no suspicious mass, calcification, or architectural distortion. us Self Screening Mammogram IMG MAMMO PROCEDURES Fi nal Result from Last 3 Months Insurance [facility] Care Teams Opal Polisher Relationship Specialty Start Date End Date Guanaco Gillis DO PCP - General Internal Medicine 12/14/23
[2025-02-05 07:45] LABS: Hematocrit 38.8 % (37.0-47.0); Hemoglobin 12.8 g/dL (12.0-15.0); Immature Granulocyte Percent A 0.4 % (0-0.5); Lymphocytes Absolute Auto 2.03 K/mm3 (0.9-3.2); Mean Corpuscular HGB Conc 33.0 g/dl (32-36); Mean Corpuscular Hemoglobin 29.9 pg (26-34); Mean Corpuscular Volume 90.7 fl (80-100); Nucleated Red Blood Cells Absolute Auto 0.000 K/mm3 (0.0-0.012); Nucleated Red Blood Cells Perc 0.0 % (0.0-0.2); Platelet Count Result 260 k/mm3 (150-375); Red Blood Count 4.28 M/mm3 (4.2-5.4); White Blood Count 5.7 K/mm3 (4.5-10.0)
[2025-02-05 08:08] LABS: Alanine Aminotransferase 32 U/L (6-35); Albumin Level 4.7 g/dL (3.5-5.1); Alkaline Phosphatase 57 U/L (38-126); Anion Gap 9 mmol/L (4-12); Aspartate Amino Transferase 31 U/L (14-36); Bilirubin,Total 0.7 mg/dL (0.2-1.3); Blood Urea Nitrogen 12 mg/dL (7-17); Calcium 9.8 mg/dL (8.4-10.2); Carbon Dioxide 23 mmol/L (22-30); Chloride 105 mmol/L (98-107); Cholesterol 190 mg/dL (0-200); Estimated Glomerular Filt Rate > 60; Glucose 90 mg/dL (65-110); HDL Direct 82 mg/dL; Potassium 4.2 mmol/L (3.4-5.0); Sodium 137 mmol/L (137-145); Total Protein 7.6 g/dL (6.3-8.2); Triglycerides 225 mg/dL (<150)
== END 2025-02-05 07:19 | disposition home or self-care (01) ==
LOC: ANHLAB 07:23
PROVIDERS: PCP Internal Medicine; Visit Provider Internal Medicine
DX: I10 Essential (primary) hypertension (principal); E55.9 Vitamin D deficiency, unspecified; E78.00 Pure hypercholesterolemia, unspecified
CPT/HCPCS: 36415; 80053; 80061; 82306; 85025